=== PATIENT | male | born 1955 | race Caucasian/White ===

== ENCOUNTER 2020-01-04 10:07 | Outpatient (REF) | payer MEDICARE, SELFPAY ==
[2020-01-04 13:45] LABS: C Reactive Protein 0.22 mg/dL (< or = 0.50)
[2020-01-04 14:20] LABS: Erythrocyte Sedimentation Rate 7 MM/HR (0-15)
== END 2020-01-04 10:08 | disposition home or self-care (01) ==
LOC: HO.MANLDS 10:07
PROVIDERS: PCP Physician Assistant; Visit Provider Physician Assistant
DX: K51.90 Ulcerative colitis, unspecified, without complications (principal)
CPT/HCPCS: 36415; 85652; 86140

== ENCOUNTER 2020-10-24 09:11 | Outpatient (REF) | payer MEDICARE, SELFPAY ==
[2020-10-24 11:40] LABS: MANUAL DIFF FLAG NO
[2020-10-24 11:44] LABS: Basophils Percent Auto 0.8 % (0-2); Eosinophils Absolute Auto 0.1 X10*3/uL (0.0-0.4); Eosinophils Percent Auto 2.3 % (0-4); Hematocrit 40.3 % (42-52); Hemoglobin 13.5 g/dl (14.0-18.0); Imm Gran Abs Auto 0.01 X10*3/uL (0.00-0.03); Imm Gran Pct Auto 0.2 % (0.0-0.4); Lymphocytes Absolute Auto 1.8 X10*3/uL (1.2-4.9); Lymphocytes Percent Auto 33.8 % (20-40); Mean Corpuscular HGB Conc 33.5 g/dl (31.0-36.0); Mean Corpuscular Volume 95.5 fL (80-98); Mean Platelet Volume 10.6 fL (9.4-12.4); Monocytes Absolute Auto 0.4 X10*3/uL (0.1-1.2); Monocytes Percent Auto 7.8 % (2-11); Neutrophils Absolute Auto 2.9 X10*3/uL (2.0-8.3); Neutrophils Percent Auto 55.1 % (45-73); Platelet Count 188 X10*3/uL (160-400); Red Blood Count 4.22 X10*6/uL (4.60-5.80); Red Cell Distribution Width 12.1 % (11.0-16.0); White Blood Count 5.3 X10*3/uL (4.8-10.8)
[2020-10-24 12:04] LABS: Alanine Aminotransferase 60 U/L (0-40); Albumin Level 4.4 g/dL (3.5-5.0); Alkaline Phosphatase 67 U/L (39-117); Anion Gap 12 (12-20); Aspartate Amino Transferase 61 U/L (5-37); Bilirubin Total 0.8 mg/dL (0.0-1.0); Blood Urea Nitrogen 10 mg/dL (9-16); Calcium 9.5 mg/dL (8.4-10.2); Carbon Dioxide 28 mmol/L (22-29); Chloride 103 mmol/L (96-108); Cholesterol 153 mg/dL; Estimated Glomerular Filt Rate > 60; Glucose Fasting 172 mg/dL (60-99); HDL Cholesterol 27 mg/dL; LDL Cholesterol Calculated 65 mg/dl; Potassium 4.3 mmol/L (3.3-5.1); Sodium 139 mmol/L (135-145); Total Protein 6.7 g/dL (6.5-8.0); Triglycerides 305 mg/dL
== END 2020-10-24 09:12 | disposition home or self-care (01) ==
LOC: HO.MANLDS 09:11
PROVIDERS: PCP Internal Medicine; Visit Provider Physician Assistant
DX: Z00.00 Encounter for general adult medical examination without abnormal findings (principal)
CPT/HCPCS: 36415; 80053; 80061; 85025

== ENCOUNTER 2021-08-08 09:46 | Outpatient (REF) | payer MEDICARE, SELFPAY ==
[2021-08-08 10:22] LABS: Hematocrit 39.3 % (42.0-52.0); Hemoglobin 13.3 g/dl (14.0-18.0); Mean Corpuscular HGB Conc 33.8 g/dl (31.0-36.0); Mean Corpuscular Hemoglobin 31.4 pg (27.0-33.0); Mean Corpuscular Volume 92.7 fL (80.0-98.0); Mean Platelet Volume 10.1 fL (9.4-12.4); Platelet Count 181 X10*3/uL (160-400); Red Blood Count 4.24 X10*6/uL (4.60-5.80); Red Cell Distribution Width 12.3 % (11.0-16.0); White Blood Count 4.7 X10*3/uL (4.8-10.8)
[2021-08-08 10:36] LABS: Alanine Aminotransferase 53 U/L (0-40); Albumin Level 4.3 g/dL (3.5-5.0); Alkaline Phosphatase 58 U/L (39-117); Anion Gap 12 (12-20); Aspartate Amino Transferase 40 U/L (5-37); Bilirubin Total 0.5 mg/dL (0.0-1.0); Blood Urea Nitrogen 13 mg/dL (9-16); Calcium 9.8 mg/dL (8.4-10.2); Carbon Dioxide 26 mmol/L (22-29); Chloride 105 mmol/L (96-108); Estimated Glomerular Filt Rate > 60; Glucose Random 195 mg/dL (60-115); Iron 82 mcg/dL (45-160); Percent Iron Saturation 24 % (15-50); Potassium 4.4 mmol/L (3.3-5.1); Sodium 139 mmol/L (135-145); Total Iron Binding Capacity 347 mcg/dL (228-428); Total Protein 6.6 g/dL (6.5-8.0); Unsaturated Iron Binding 265 ug/dL
[2021-08-08 10:56] LABS: Ferritin 740 ng/mL (20-250)
== END 2021-08-08 09:47 | disposition home or self-care (01) ==
LOC: HO.BBR 09:46
PROVIDERS: Visit Provider Physician Assistant
DX: E83.110 Hereditary hemochromatosis (principal)
CPT/HCPCS: 36415; 80053; 82728; 83540; 85027

== ENCOUNTER 2021-08-28 11:41 | Outpatient (REF) | payer MEDICARE, SELFPAY ==
[2021-08-28 12:59] LABS: Alanine Aminotransferase 39 U/L (0-40); Albumin Level 4.4 g/dL (3.5-5.0); Alkaline Phosphatase 55 U/L (39-117); Anion Gap 11 (12-20); Aspartate Amino Transferase 34 U/L (5-37); Bilirubin Total 0.5 mg/dL (0.0-1.0); Blood Urea Nitrogen 16 mg/dL (9-16); Calcium 9.9 mg/dL (8.4-10.2); Carbon Dioxide 28 mmol/L (22-29); Chloride 104 mmol/L (96-108); Estimated Glomerular Filt Rate > 60; Glucose Random 195 mg/dL (60-115); Potassium 4.5 mmol/L (3.3-5.1); Sodium 138 mmol/L (135-145); Total Protein 6.9 g/dL (6.5-8.0)
[2021-08-28 13:01] LABS: Estimated Average Glucose 114 mg/dL; Hemoglobin A1C 135.2405 umol/L; Hemoglobin A1c % 5.6 %
== END 2021-08-28 11:42 | disposition home or self-care (01) ==
LOC: HO.MANLDS 11:41
PROVIDERS: Visit Provider Physician Assistant
DX: E11.9 Type 2 diabetes mellitus without complications (principal)
CPT/HCPCS: 36415; 80053; 83036

== ENCOUNTER 2021-11-08 10:00 | Outpatient (REF) | payer MEDICARE, SELFPAY ==
[2021-11-08 10:17] LABS: MANUAL DIFF FLAG NO
[2021-11-08 10:19] LABS: Basophils Absolute Auto 0.1 X10*3/uL (0.0-0.2); Basophils Percent Auto 0.9 % (0-2); Eosinophils Absolute Auto 0.1 X10*3/uL (0.0-0.4); Eosinophils Percent Auto 1.3 % (0-4); Hemoglobin 14.4 g/dl (14.0-18.0); Imm Gran Abs Auto 0.01 X10*3/uL (0.00-0.03); Imm Gran Pct Auto 0.2 % (0.0-0.4); Lymphocytes Absolute Auto 1.8 X10*3/uL (1.2-4.9); Lymphocytes Percent Auto 32.4 % (20-40); Mean Corpuscular HGB Conc 33.5 g/dl (31.0-36.0); Mean Corpuscular Hemoglobin 31.2 pg (27.0-33.0); Mean Corpuscular Volume 93.3 fL (80.0-98.0); Mean Platelet Volume 9.7 fL (9.4-12.4); Monocytes Absolute Auto 0.5 X10*3/uL (0.1-1.2); Monocytes Percent Auto 8.3 % (2-11); Neutrophils Absolute Auto 3.1 x10*3/uL (2.0-8.3); Neutrophils Percent Auto 56.9 % (45-73); Platelet Count 165 X10*3/uL (160-400); Red Blood Count 4.61 X10*6/uL (4.60-5.80); White Blood Count 5.4 X10*3/uL (4.8-10.8)
[2021-11-08 10:37] LABS: Alanine Aminotransferase 18 U/L (0-40); Albumin Level 4.4 g/dL (3.5-5.0); Alkaline Phosphatase 47 U/L (39-117); Anion Gap 13 (12-20); Aspartate Amino Transferase 21 U/L (5-37); Bilirubin Total 0.6 mg/dL (0.0-1.0); Blood Urea Nitrogen 18 mg/dL (9-16); Calcium 9.2 mg/dL (8.4-10.2); Carbon Dioxide 29 mmol/L (22-29); Chloride 104 mmol/L (96-108); Estimated Glomerular Filt Rate > 60; Glucose Random 110 mg/dL (60-115); Iron 68 mcg/dL (45-160); Percent Iron Saturation 17 % (15-50); Potassium 4.6 mmol/L (3.3-5.1); Sodium 141 mmol/L (135-145); Total Iron Binding Capacity 394 mcg/dL (228-428); Total Protein 6.7 g/dL (6.5-8.0); Unsaturated Iron Binding 326 ug/dL
[2021-11-08 10:57] LABS: Ferritin 213 ng/mL (20-250)
== END 2021-11-08 10:01 | disposition home or self-care (01) ==
LOC: HO.BBR 10:00
PROVIDERS: Visit Provider Physician Assistant
DX: E83.110 Hereditary hemochromatosis (principal)
CPT/HCPCS: 36415; 80053; 82728; 83540; 85025

== ENCOUNTER 2022-02-12 09:49 | Outpatient (REF) | payer MEDICARE, SELFPAY ==
[2022-02-12 10:26] LABS: MANUAL DIFF FLAG NO
[2022-02-12 10:29] LABS: Basophils Percent Auto 0.6 % (0-2); Eosinophils Absolute Auto 0.1 X10*3/uL (0.0-0.4); Eosinophils Percent Auto 1.3 % (0-4); Hematocrit 44.6 % (42.0-52.0); Hemoglobin 14.7 g/dl (14.0-18.0); Imm Gran Abs Auto 0.02 X10*3/uL (0.00-0.03); Imm Gran Pct Auto 0.3 % (0.0-0.4); Lymphocytes Absolute Auto 2.2 X10*3/uL (1.2-4.9); Lymphocytes Percent Auto 34.4 % (20-40); Mean Corpuscular Hemoglobin 30.4 pg (27.0-33.0); Mean Corpuscular Volume 92.1 fL (80.0-98.0); Mean Platelet Volume 9.6 fL (9.4-12.4); Monocytes Absolute Auto 0.5 X10*3/uL (0.1-1.2); Monocytes Percent Auto 8.6 % (2-11); Neutrophils Absolute Auto 3.5 x10*3/uL (2.0-8.3); Neutrophils Percent Auto 54.8 % (45-73); Platelet Count 165 X10*3/uL (160-400); Red Blood Count 4.84 X10*6/uL (4.60-5.80); Red Cell Distribution Width 12.5 % (11.0-16.0); White Blood Count 6.3 X10*3/uL (4.8-10.8)
[2022-02-12 11:48] LABS: Alanine Aminotransferase 17 U/L (0-40); Albumin Level 4.4 g/dL (3.5-5.0); Alkaline Phosphatase 53 U/L (39-117); Anion Gap 14 (12-20); Aspartate Amino Transferase 19 U/L (5-37); Bilirubin Total 0.6 mg/dL (0.0-1.0); Blood Urea Nitrogen 23 mg/dL (9-16); Calcium 9.8 mg/dL (8.4-10.2); Carbon Dioxide 25 mmol/L (22-29); Chloride 104 mmol/L (96-108); Estimated Glomerular Filt Rate > 60; Ferritin 168 ng/mL (20-250); Glucose Random 124 mg/dL (60-115); Iron 92 mcg/dL (45-160); Percent Iron Saturation 27 % (15-50); Potassium 4.6 mmol/L (3.3-5.1); Sodium 138 mmol/L (135-145); Total Iron Binding Capacity 338 mcg/dL (228-428); Total Protein 6.9 g/dL (6.5-8.0); Unsaturated Iron Binding 246 ug/dL
== END 2022-02-12 09:50 | disposition home or self-care (01) ==
LOC: HO.BBR 09:49
PROVIDERS: Visit Provider Physician Assistant
DX: E83.110 Hereditary hemochromatosis (principal)
CPT/HCPCS: 36415; 80053; 82728; 83540; 85025

== ENCOUNTER 2022-02-26 11:56 | Outpatient (REF) | payer MEDICARE, SELFPAY | END 2022-02-26 11:57 | disposition home or self-care (01) | LOC: HO.BBR 11:56 | PROVIDERS: Visit Provider Physician Assistant | DX: Z13.89 Encounter for screening for other disorder (principal) ==

== ENCOUNTER 2022-04-02 07:44 | Outpatient (REF) | payer MEDICARE, SELFPAY ==
[2022-04-02 11:37] LABS: Estimated Average Glucose 100 mg/dL; Hemoglobin A1c % 5.1 %
[2022-04-02 11:43] LABS: Alanine Aminotransferase 18 U/L (0-40); Albumin Level 4.5 g/dL (3.5-5.0); Alkaline Phosphatase 49 U/L (39-117); Anion Gap 13 (12-20); Aspartate Amino Transferase 18 U/L (5-37); Bilirubin Total 0.7 mg/dL (0.0-1.0); Blood Urea Nitrogen 18 mg/dL (9-16); Calcium 9.5 mg/dL (8.4-10.2); Carbon Dioxide 28 mmol/L (22-29); Chloride 104 mmol/L (96-108); Estimated Glomerular Filt Rate > 60; Glucose Random 92 mg/dL (60-115); Potassium 4.7 mmol/L (3.3-5.1); Sodium 140 mmol/L (135-145); Total Protein 6.9 g/dL (6.5-8.0)
== END 2022-04-02 07:45 | disposition home or self-care (01) ==
LOC: HO.MANLDS 07:44
PROVIDERS: Visit Provider Physician Assistant
DX: E11.9 Type 2 diabetes mellitus without complications (principal)
CPT/HCPCS: 36415; 80053; 83036

== ENCOUNTER 2022-05-27 11:50 | Outpatient (REF) | payer MEDICARE, SELFPAY ==
[2022-05-27 12:07] LABS: MANUAL DIFF FLAG NO
[2022-05-27 12:10] LABS: Basophils Absolute Auto 0.1 X10*3/uL (0.0-0.2); Basophils Percent Auto 0.6 % (0-2); Eosinophils Absolute Auto 0.1 X10*3/uL (0.0-0.4); Eosinophils Percent Auto 1.5 % (0-4); Imm Gran Abs Auto 0.02 X10*3/uL (0.00-0.03); Imm Gran Pct Auto 0.3 % (0.0-0.4); Lymphocytes Absolute Auto 2.6 X10*3/uL (1.2-4.9); Lymphocytes Percent Auto 32.7 % (20-40); Mean Corpuscular HGB Conc 34.1 g/dl (31.0-36.0); Mean Corpuscular Hemoglobin 31.1 pg (27.0-33.0); Mean Corpuscular Volume 91.3 fL (80.0-98.0); Mean Platelet Volume 9.6 fL (9.4-12.4); Monocytes Absolute Auto 0.5 X10*3/uL (0.1-1.2); Monocytes Percent Auto 6.7 % (2-11); Neutrophils Absolute Auto 4.6 x10*3/uL (2.0-8.3); Neutrophils Percent Auto 58.2 % (45-73); Platelet Count 192 X10*3/uL (160-400); Red Blood Count 4.82 X10*6/uL (4.60-5.80); Red Cell Distribution Width 12.4 % (11.0-16.0); White Blood Count 7.9 X10*3/uL (4.8-10.8)
[2022-05-27 14:13] LABS: Alanine Aminotransferase 18 U/L (0-40); Albumin Level 4.3 g/dL (3.5-5.0); Alkaline Phosphatase 52 U/L (39-117); Anion Gap 9 (12-20); Aspartate Amino Transferase 24 U/L (5-37); Bilirubin Total 0.6 mg/dL (0.0-1.0); Blood Urea Nitrogen 17 mg/dL (9-16); Calcium 9.5 mg/dL (8.4-10.2); Carbon Dioxide 32 mmol/L (22-29); Chloride 104 mmol/L (96-108); Estimated Glomerular Filt Rate > 60; Glucose Random 82 mg/dL (60-115); Iron 123 mcg/dL (45-160); Percent Iron Saturation 39 % (15-50); Potassium 4.4 mmol/L (3.3-5.1); Sodium 141 mmol/L (135-145); Total Iron Binding Capacity 317 mcg/dL (228-428); Total Protein 6.6 g/dL (6.5-8.0); Unsaturated Iron Binding 194 ug/dL
[2022-05-27 14:27] LABS: Ferritin 165 ng/mL (20-250)
== END 2022-05-27 11:51 | disposition home or self-care (01) ==
LOC: HO.BBR 11:50
PROVIDERS: Visit Provider Physician Assistant
DX: E83.110 Hereditary hemochromatosis (principal)
CPT/HCPCS: 36415; 80053; 82728; 83540; 85025

== ENCOUNTER 2022-07-28 12:01 | Outpatient (REF) | payer MEDICARE, SELFPAY | END 2022-07-28 12:02 | disposition home or self-care (01) | LOC: HO.BBR 12:01 | PROVIDERS: Visit Provider Physician Assistant | DX: Z13.89 Encounter for screening for other disorder (principal) ==

== ENCOUNTER 2022-10-28 11:54 | Outpatient (REF) | payer MEDICARE, SELFPAY | END 2022-10-28 11:55 | disposition home or self-care (01) | LOC: HO.BBR 11:54 | PROVIDERS: Visit Provider Physician Assistant | DX: Z13.89 Encounter for screening for other disorder (principal) ==

== ENCOUNTER 2022-10-29 09:09 | Outpatient (REF) | payer MEDICARE, SELFPAY ==
[2022-10-29 09:39] LABS: MANUAL DIFF FLAG NO
[2022-10-29 09:46] LABS: Basophils Absolute Auto 0.1 X10*3/uL (0.0-0.2); Eosinophils Absolute Auto 0.1 X10*3/uL (0.0-0.4); Eosinophils Percent Auto 1.5 % (0-4); Hemoglobin 14.4 g/dl (14.0-18.0); Imm Gran Abs Auto 0.02 X10*3/uL (0.00-0.03); Imm Gran Pct Auto 0.3 % (0.0-0.4); Lymphocytes Absolute Auto 2.1 X10*3/uL (1.2-4.9); Lymphocytes Percent Auto 35.9 % (20-40); Mean Corpuscular HGB Conc 33.5 g/dl (31.0-36.0); Mean Corpuscular Hemoglobin 30.8 pg (27.0-33.0); Mean Corpuscular Volume 91.9 fL (80.0-98.0); Mean Platelet Volume 9.9 fL (9.4-12.4); Monocytes Absolute Auto 0.4 X10*3/uL (0.1-1.2); Neutrophils Absolute Auto 3.2 x10*3/uL (2.0-8.3); Neutrophils Percent Auto 54.3 % (45-73); Platelet Count 173 X10*3/uL (160-400); Red Blood Count 4.68 X10*6/uL (4.60-5.80); Red Cell Distribution Width 12.5 % (11.0-16.0); White Blood Count 5.9 X10*3/uL (4.8-10.8)
[2022-10-29 11:03] LABS: Alanine Aminotransferase 20 U/L (0-40); Albumin Level 4.2 g/dL (3.5-5.0); Alkaline Phosphatase 53 U/L (39-117); Anion Gap 14 (12-20); Aspartate Amino Transferase 20 U/L (5-37); Bilirubin Total 0.5 mg/dL (0.0-1.0); Blood Urea Nitrogen 17 mg/dL (9-16); Calcium 9.1 mg/dL (8.4-10.2); Carbon Dioxide 23 mmol/L (22-29); Chloride 110 mmol/L (96-108); Estimated Glomerular Filt Rate > 60; Glucose Random 120 mg/dL (60-115); Iron 93 mcg/dL (45-160); Percent Iron Saturation 30 % (15-50); Potassium 4.1 mmol/L (3.3-5.1); Sodium 143 mmol/L (135-145); Total Iron Binding Capacity 313 mcg/dL (228-428); Total Protein 6.7 g/dL (6.5-8.0); Unsaturated Iron Binding 220 ug/dL
[2022-10-29 11:06] LABS: Ferritin 113 ng/mL (20-250)
== END 2022-10-29 09:10 | disposition home or self-care (01) ==
LOC: HO.LNP 09:09
PROVIDERS: Visit Provider Physician Assistant
DX: Z13.89 Encounter for screening for other disorder (principal)
CPT/HCPCS: 80053; 82728; 83540; 85025

== ENCOUNTER 2022-12-02 08:30 | Outpatient (REF) | payer MEDICARE, SELFPAY ==
[2022-12-02 13:27] LABS: MANUAL DIFF FLAG NO
[2022-12-02 13:39] LABS: Basophils Absolute Auto 0.1 X10*3/uL (0.0-0.2); Basophils Percent Auto 1.1 % (0-2); Eosinophils Absolute Auto 0.1 X10*3/uL (0.0-0.4); Eosinophils Percent Auto 1.5 % (0-4); Hematocrit 43.5 % (42.0-52.0); Hemoglobin 14.4 g/dl (14.0-18.0); Imm Gran Abs Auto 0.02 X10*3/uL (0.00-0.03); Imm Gran Pct Auto 0.4 % (0.0-0.4); Lymphocytes Absolute Auto 1.8 X10*3/uL (1.2-4.9); Lymphocytes Percent Auto 38.6 % (20-40); Mean Corpuscular HGB Conc 33.1 g/dl (31.0-36.0); Mean Corpuscular Hemoglobin 31.5 pg (27.0-33.0); Mean Corpuscular Volume 95.2 fL (80.0-98.0); Mean Platelet Volume 10.3 fL (9.4-12.4); Monocytes Absolute Auto 0.4 X10*3/uL (0.1-1.2); Monocytes Percent Auto 8.5 % (2-11); Neutrophils Absolute Auto 2.4 x10*3/uL (2.0-8.3); Neutrophils Percent Auto 49.9 % (45-73); Platelet Count 163 X10*3/uL (160-400); Red Blood Count 4.57 X10*6/uL (4.60-5.80); Red Cell Distribution Width 12.8 % (11.0-16.0); White Blood Count 4.7 X10*3/uL (4.8-10.8)
[2022-12-02 14:05] LABS: Alanine Aminotransferase 22 U/L (0-40); Albumin Level 4.2 g/dL (3.5-5.0); Alkaline Phosphatase 47 U/L (39-117); Anion Gap 11 (12-20); Aspartate Amino Transferase 23 U/L (5-37); Bilirubin Total 0.5 mg/dL (0.0-1.0); Blood Urea Nitrogen 14 mg/dL (9-16); Calcium 9.5 mg/dL (8.4-10.2); Carbon Dioxide 29 mmol/L (22-29); Chloride 106 mmol/L (96-108); Cholesterol 138 mg/dL (<200); Estimated Glomerular Filt Rate > 60; Glucose Random 107 mg/dL (60-115); HDL Cholesterol 29 mg/dL (>40); LDL Cholesterol Calculated 70 mg/dL (<100); Potassium 4.1 mmol/L (3.3-5.1); Sodium 142 mmol/L (135-145); Total Protein 6.6 g/dL (6.5-8.0); Triglycerides 196 mg/dL (<150)
[2022-12-02 14:26] LABS: Creatinine Urine 287.28 mg/dL; Microalbum/Creatinine Ratio Ur 2.7 ug/mg cr (<30)
[2022-12-02 14:33] LABS: Estimated Average Glucose 97 mg/dL
== END 2022-12-02 08:31 | disposition home or self-care (01) ==
LOC: HO.MANLDS 08:30
PROVIDERS: Visit Provider Physician Assistant
DX: E11.9 Type 2 diabetes mellitus without complications (principal)
CPT/HCPCS: 36415; 80053; 80061; 82043; 82570; 83036; 85025

== ENCOUNTER 2023-02-03 11:49 | Outpatient (REF) | payer MEDICARE, SELFPAY ==
[2023-02-03 12:08] LABS: MANUAL DIFF FLAG NO
[2023-02-03 12:09] LABS: Basophils Absolute Auto 0.1 X10*3/uL (0.0-0.2); Basophils Percent Auto 0.9 % (0-2); Eosinophils Absolute Auto 0.1 X10*3/uL (0.0-0.4); Eosinophils Percent Auto 2.3 % (0-4); Hematocrit 44.6 % (42.0-52.0); Imm Gran Abs Auto 0.01 X10*3/uL (0.00-0.03); Imm Gran Pct Auto 0.2 % (0.0-0.4); Lymphocytes Absolute Auto 1.9 X10*3/uL (1.2-4.9); Lymphocytes Percent Auto 33.5 % (20-40); Mean Corpuscular HGB Conc 33.6 g/dl (31.0-36.0); Mean Corpuscular Hemoglobin 31.6 pg (27.0-33.0); Mean Corpuscular Volume 93.9 fL (80.0-98.0); Mean Platelet Volume 9.8 fL (9.4-12.4); Monocytes Absolute Auto 0.4 X10*3/uL (0.1-1.2); Monocytes Percent Auto 7.3 % (2-11); Neutrophils Absolute Auto 3.1 x10*3/uL (2.0-8.3); Neutrophils Percent Auto 55.8 % (45-73); Platelet Count 166 X10*3/uL (160-400); Red Blood Count 4.75 X10*6/uL (4.60-5.80); Red Cell Distribution Width 12.3 % (11.0-16.0); White Blood Count 5.6 X10*3/uL (4.8-10.8)
[2023-02-03 12:49] LABS: Alanine Aminotransferase 18 U/L (0-40); Albumin Level 4.5 g/dL (3.5-5.0); Alkaline Phosphatase 56 U/L (39-117); Anion Gap 12 (12-20); Aspartate Amino Transferase 20 U/L (5-37); Bilirubin Total 0.6 mg/dL (0.0-1.0); Blood Urea Nitrogen 14 mg/dL (9-16); Calcium 9.6 mg/dL (8.4-10.2); Carbon Dioxide 30 mmol/L (22-29); Chloride 105 mmol/L (96-108); Estimated Glomerular Filt Rate > 60; Glucose Random 110 mg/dL (60-115); Iron 111 mcg/dL (45-160); Percent Iron Saturation 35 % (15-50); Potassium 4.9 mmol/L (3.3-5.1); Sodium 142 mmol/L (135-145); Total Iron Binding Capacity 316 mcg/dL (228-428); Total Protein 7.3 g/dL (6.5-8.0); Unsaturated Iron Binding 205 ug/dL
[2023-02-03 12:57] LABS: Ferritin 109 ng/mL (20-250)
== END 2023-02-03 11:50 | disposition home or self-care (01) ==
LOC: HO.BBR 11:49
PROVIDERS: PCP Internal Medicine; Visit Provider Physician Assistant
DX: E83.110 Hereditary hemochromatosis (principal)
CPT/HCPCS: 36415; 80053; 82728; 83540; 85025

== ENCOUNTER 2023-05-06 10:48 | Outpatient (REF) | payer MEDICARE, SELFPAY ==
[2023-05-06 11:13] LABS: MANUAL DIFF FLAG NO
[2023-05-06 11:15] LABS: Basophils Absolute Auto 0.1 X10*3/uL (0.0-0.2); Basophils Percent Auto 0.9 % (0-2); Eosinophils Absolute Auto 0.2 X10*3/uL (0.0-0.4); Eosinophils Percent Auto 2.2 % (0-4); Hematocrit 45.1 % (42.0-52.0); Hemoglobin 15.4 g/dl (14.0-18.0); Imm Gran Abs Auto 0.02 X10*3/uL (0.00-0.03); Imm Gran Pct Auto 0.3 % (0.0-0.4); Lymphocytes Absolute Auto 2.2 X10*3/uL (1.2-4.9); Lymphocytes Percent Auto 31.8 % (20-40); Mean Corpuscular HGB Conc 34.1 g/dl (31.0-36.0); Mean Corpuscular Hemoglobin 31.2 pg (27.0-33.0); Mean Corpuscular Volume 91.3 fL (80.0-98.0); Mean Platelet Volume 9.3 fL (9.4-12.4); Monocytes Absolute Auto 0.5 X10*3/uL (0.1-1.2); Monocytes Percent Auto 7.2 % (2-11); Neutrophils Absolute Auto 3.9 x10*3/uL (2.0-8.3); Neutrophils Percent Auto 57.6 % (45-73); Platelet Count 186 X10*3/uL (160-400); Red Blood Count 4.94 X10*6/uL (4.60-5.80); Red Cell Distribution Width 12.6 % (11.0-16.0); White Blood Count 6.8 X10*3/uL (4.8-10.8)
[2023-05-06 13:01] LABS: Alanine Aminotransferase 24 U/L (0-40); Albumin Level 4.6 g/dL (3.5-5.0); Alkaline Phosphatase 55 U/L (39-117); Anion Gap 12 (12-20); Aspartate Amino Transferase 21 U/L (5-37); Bilirubin Total 0.7 mg/dL (0.0-1.0); Blood Urea Nitrogen 17 mg/dL (9-16); Calcium 9.8 mg/dL (8.4-10.2); Carbon Dioxide 29 mmol/L (22-29); Chloride 102 mmol/L (96-108); Estimated Glomerular Filt Rate > 60; Glucose Random 106 mg/dL (60-115); Iron 130 mcg/dL (45-160); Percent Iron Saturation 38 % (15-50); Potassium 3.7 mmol/L (3.3-5.1); Sodium 139 mmol/L (135-145); Total Iron Binding Capacity 345 mcg/dL (228-428); Total Protein 7.3 g/dL (6.5-8.0); Unsaturated Iron Binding 215 ug/dL
[2023-05-06 13:21] LABS: Ferritin 109 ng/mL (20-250)
== END 2023-05-06 10:49 | disposition home or self-care (01) ==
LOC: HO.BBR 10:48
PROVIDERS: PCP Internal Medicine; Visit Provider Physician Assistant
DX: E83.110 Hereditary hemochromatosis (principal)
CPT/HCPCS: 36415; 80053; 82728; 83540; 85025

== ENCOUNTER 2023-08-04 12:04 | Outpatient (REF) | payer MEDICARE, SELFPAY | END 2023-08-04 12:05 | disposition home or self-care (01) | LOC: HO.BBR 12:04 | PROVIDERS: PCP Internal Medicine; Visit Provider Physician Assistant | DX: Z13.89 Encounter for screening for other disorder (principal) ==

== ENCOUNTER 2023-10-12 10:54 | Outpatient (REF) | payer MEDICARE, SELFPAY | END 2023-10-12 10:55 | disposition home or self-care (01) | LOC: HO.BBR 10:54 | PROVIDERS: PCP Internal Medicine; Visit Provider Physician Assistant | DX: Z13.89 Encounter for screening for other disorder (principal) ==

== ENCOUNTER 2023-12-16 11:00 | Outpatient (REF) | payer MEDICARE, SELFPAY | END 2023-12-16 11:01 | disposition home or self-care (01) | LOC: HO.BBR 11:00 | PROVIDERS: PCP Internal Medicine; Visit Provider Physician Assistant | DX: Z13.89 Encounter for screening for other disorder (principal) ==

== ENCOUNTER 2024-02-17 11:51 | Outpatient (REF) | payer MEDICARE, SELFPAY | END 2024-02-17 11:52 | disposition home or self-care (01) | LOC: HO.BBR 11:51 | PROVIDERS: PCP Internal Medicine; Visit Provider Physician Assistant | DX: Z13.89 Encounter for screening for other disorder (principal) ==

== ENCOUNTER 2024-04-20 11:48 | Outpatient (REF) | payer MEDICARE, SELFPAY ==
--- OUTSIDE RECORDS SUMMARY | 2024-04-20 13:49 | XMS_ITS | Data Portability ---
Author Organization [facility] Home Service Address [address] [place] [address] Assessment Encounter Date Assessment Date Assessment LastModified by Organization Details LastModified Time 12/12/2022 12/12/2022 The patient denies recent falls or recurrent falls. Denies instability, weakness, abnormal gait, or difficulties with movement. The patient wears correct, supportive shoes and is not otherwise severely visually impaired. The patient is full weight bearing and if using the assistance of a cane or walker feels supported and stable with the use of such devices. All medical conditions have been taken into account that may pose a risk for the patient for falls. Home julia, carpets and/or rugs do not pose a challenge for the patient. The patient has been educated about the use of vitamin D supplementation for bone health and prevention of hypotensive episodes that may increase risk for fall. All question and concerns were answered to the patient's satisfaction. The patient denies little pleasure in activities they find enjoyable, feeling depressed, difficulties sleeping, feeling tired or having little energy, change in appetite, feeling guilty, overwhelmed or unmotivated. The patient denies suicidal ideation, thoughts of hurting themselves or others. Their mood is appropriate, they show good judgement and clear understanding of the conversation. They are orientated to time, place and person. They are not expressing any concerning thoughts or actions that would need further investigation and treatment for mental health. [email or web address] Not available 12/12/2022 11:59:15 Plan of Treatment Reminders Order Date Submit Date Provider Last Modified By Organization Details Last Modified Time Details Appointments None recorded. Lab lipid panel, blood 2020 021 [facility], [address] [place] [address], [place], [address], 12:01:03 CMP, serum or plasma 2020 021 [facility], [address] [place] [address], [address], 12:01:03 CBC w/ auto diff 2020 021 [facility], [address] [place] [address], [address], 12:01:03 hemoglobin A1c, QN, blood 2021 022 [facility], [address] [place] [address], [address], 13:59:11 CMP, serum or plasma 2021 022 [facility], [address] [place] [address], [address], 13:59:11 hemoglobin A1c, QN, blood 2021 022 [facility], [address] [place] [address], [address], 13:59:11 CMP, serum or plasma 2021 022 [facility], [address] [place] [address], [address], 13:59:11 HbA1c (hemoglobi n A1c), blood 2022 023 [facility], [address] [place] [address], [address], 3 09:46:51 CMP, serum or plasma 2022 023 [facility], [address] [place] [address], [address], 3 09:46:51 lipid panel, blood 2022 023 [facility], [address] [place] [address], [address], 3 09:46:51 hemoglobin A1c, QN, blood 2022 023 [facility], [address] [place] [address], [address], 3 09:46:51 CMP, serum or plasma 2023 024 [facility], [address] [place] [address], [address], 4 10:59:04 lipid panel, blood 2023 024 [facility], [address] [place] [address], [address], 4 10:59:04 hemoglobin A1c, QN, blood 2023 024 [facility], [address] [place] [address], [address], 4 10:59:04 CBC w/ auto diff 2023 024 [facility], [address] [place] [address], [address], 4 10:59:04 Referral ophthalmol ogist referral 2022 023 [email or web address] Allison MD PHD, [address], [place], [address], 3 08:42:24 Procedures None recorded. Surgeries None recorded. Imaging None recorded. Medication Orders metformin 500 mg tablet [address] [id number], [address] [facility], [place], [address], 2 11:52:14 atorvastat in 40 mg tablet 2023 024 [id number], [address] [place], [address], 4 10:57:53 cyclobenza gera 10 mg tablet 2023 024 [id number], [address] [place], [address], 4 10:57:53 glipizide ER 5 mg tablet, extended release 24 hr 2023 024 [id number], [address] [place], [address], 4 10:57:53 fenofibrat e nanocrysta llized 48 mg tablet 2023 024 [id number], [address] [place], [address], 4 10:57:54 Patient TargetsNo targets recorded. Patient InstructionsNo instructions recorded. 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 [email or web address] [facility] ([facility] [address] [facility], [place], [address], 08/02/2021 13:58:49 Result Notes None recorded. Problems Name Problem SNOMED Code Status Onset Date Resolution Date Notes Provider Name and Address Organization Details Recorded Time Hypercho lesterol emia 48643853 Active 2017 Not Available [facility] 3 11:42:59 History of depressi on 266285725 Active 2017 Not Available [facility] 3 11:42:59 Anxiety 06419371 Active 2017 Not Available [facility] 3 11:42:59 Osteoart hritis 910652493 Active 2017 Not Available [facility] 3 11:42:59 History of operativ e procedur e on knee 444396980 Active 2017 Left 1973 , Right 2009 Not Available [facility] 3 11:42:59 Arthriti s 6393005 Active 2017 Not Available [facility] 3 11:42:59 Umbilica l hernia 121015293 Active 2017 Not Available [facility] 3 11:42:59 Hemorrho ids 21038547 Active 2017 Not Available [facility] 3 11:42:59 Gastroes ophageal reflux disease 967827386 Active 2017 Not Available [facility] 3 11:42:59 Impaired fasting glycemia 757431491 Active 2017 Not Available [facility] 3 11:42:59 Hearing loss 08656192 Active 2017 Not Available [facility] 3 11:42:59 Hydroure teroneph rosis 38714477 Active 2017 2/[address] 09/13/15 Not Available [facility] 3 11:42:59 Internal hemorrho ids 66000688 Active 2017 Not Available [facility] 3 11:42:59 Steatosi s of liver 039112805 Active 2017 stable 1.4 cn lesion Left hepatic lobe Not Available [facility] 3 11:42:59 Ulcerati ve colitis 07887559 Active 2019 Not Available [facility] 3 11:42:59 Type 2 diabetes mellitus 59211008 Active 2021 Not Available [facility] 3 11:42:59 Heredita ry hemochro matosis 23809627 Active 2023 DAIANA VELARDE [address] [place], [address], [facility] 4 16:51:26 Gyu l tremor 683921616 Active 2023 Ishan Baker DO [address] [place], [address], [facility] 4 13:32:53 Acute low back pain 372444189 Active 2023 DAIANA VELARDE [address] [place] [address], [address], [facility] 4 10:54:45 Mixed hyperlip idemia 787954219 Active 2023 DAIANA VELARDE [address] [place] [address], [address], [facility] 4 11:01:13 Guy reyes hyperten reji 97918409 Active 2017 Not Available [facility] 3 11:42:59 Notes:Some problems listed i n Document: #[id number] could not be added to this patient's chart. Please review this document and add these problems to the patient's chart manually as needed. Problem Notes None recorded. Procedures Surgical History Date Name Laterality Status Provider Name and Address Organization Details Recorded Time Colonoscopy completed Rosenda Seay [facility] 11/27/2017 16:57:59 Imaging Results Imaging Date Name Status LastModified by Organiz ation Details LastModified Time 08/02/2021 US, abdomen completed [email or web address] [facility] ([facility]) [address] [place], [address], 08/02/2021 13:58:49 Procedure Notes None recorded. Medical Equipment None Reported. Allergies No known drug allergies Medications Name Sig Start Date Stop Date Status Note LastModified by Organization Details LastModified Time cyclobenzap rine 10 mg tablet Take 1 tablet 3 times a day by oral route for 14 days. 2023 active Not Available Not Available Not Avai lable atorvastati n 40 mg tablet Take 1 tablet every day by oral route for 90 days. 2023 active Not Available Not Available Not Avai lable metformin 500 mg tablet TAKE 1 TABLET BY MOUTH EVERY DAY FOR 30 DAYS active Not Available Not Available No t Available primidone 50 mg tablet TAKE 1 TABLET BY MOUTH EVERY DAY FOR 90 DAYS active Not Available Not Available No t Available propranolol ER 160 mg capsule,24 hr,extended release TAKE 1 CAPSULE BY MOUTH EVERY DAY FOR 90 DAYS active Not Available Not Available No t Available metoprolol succinate ER 50 mg tablet,exte nded release 24 hr 12/01 completed Not Available Not Available Not Available glipizide ER 5 mg tablet, extended release 24 hr TAKE 1 TABLET BY MOUTH EVERY DAY 2023 active Not Available Not Available Not Avai lable simvastatin 40 mg tablet TAKE 1 TABLET BY MOUTH AT BEDTIME 04/27 completed Not Available Not Available Not Available alprazolam 0.5 mg tablet TAKE 1 TABLET BY MOUTH THREE TIMES A DAY 2023 active Not Available Not Available Not Avai lable amoxicillin 875 mg tablet TAKE 1 TABLET BY MOUTH TWICE A DAY UNTIL FINISHED 07/10 completed Not Available Not Available Not Available paroxetine 30 mg tablet TAKE 1 TABLET BY MOUTH EVERY DAY active Not Available Not Available No t Available simvastatin 20 mg tablet 09/22 completed Not Available Not Available Not Available propranolol ER 80 mg capsule,24 hr,extended release Take 1 capsule every day by oral route for 90 days. 04/27 completed Not Available Not Available Not Available fenofibrate nanocrystal lized 48 mg tablet TAKE 1 TABLET BY MOUTH ONCE A DAY 2023 active Not Available Not Available Not Avai lable mesalamine 1.2 gram tablet,jakob yed release Take 2 tablets every day by oral route for 30 days. 2019 active Not Available Not Available Not Avai lable GaviLyte-G 236 gram-22.74 gram-6.74 gram-5.86 gram oral solution 12/01 completed Not Available Not Available Not Available OneTouch Verio test strips USE 1 STRIP EVERY DAY 2022 active Not Available Not Available Not Avai lable Fluarix Quad 5713-9538 (PF) 60 mcg (15 mcg x 4)/0.5 mL IM syringe 12/01 completed Not Available Not Available Not Available Shingrix (PF) 50 mcg/0.5 mL intramuscul ar suspension, kit 07/10 completed Not Available Not Available Not Available Afluria Quad (PF) 60 mcg (15 mcg x 4)/0.5 mL IM syringe 03/03 completed Not Available Not Available Not Available Fluzone Quad (PF) 60 mcg (15 mcg x 4)/0.5 mL IM syringe 09/06 completed Not Available Not Available Not Available Fluzone Quad (PF) 60 mcg (15 mcg x 4)/0.5 mL IM syringe 10/24 completed Not Available Not Available Not Available Vitals Date Recorded Body height Body mass index (BMI) Body weight Heart rate Oxygen saturation Oxygen saturation in Arterial blood by Pulse oximetry Systolic blood pressure Diastolic blood pressure Provider Name and Address Organization Details Last Updated DateTime 1 193.67 cm 28.6 kg/m2 720515. 31 g 94 /min 96 % 96 % 110 mm[Hg] 70 mm[Hg] Sophia Hurtado [facility] 1 08:57:19 Date Recorded Body height Oxygen saturation Oxygen saturation in Arterial blood by Pulse oximetry Heart rate Systolic blood pressure Diastolic blood pressure Provider Name and Address Organization Details Last Updated DateTime 2 193.67 cm 96 % 96 % 58 /min 118 mm[Hg] 60 mm[Hg] Winsome Byrd [facility] Internal [facility] 2 14:00:25 Date Recorded Body height Oxygen saturation Oxygen saturation in Arterial blood by Pulse oximetry Heart rate Systolic blood pressure Diastolic blood pressure Provider Name and Address Organization Details Last Updated DateTime 3 193.67 cm 98 % 98 % 72 /min 98 mm[Hg] 62 mm[Hg] Winsome Byrd [facility] 3 09:29:46 Date Recorded Body height Body mass index (BMI) Body weight Heart rate Oxygen saturation Oxygen saturation in Arterial blood by Pulse oximetry Systolic blood pressure Diastolic blood pressure Provider Name and Address Organization Details Last Updated DateTime 3 193.67 cm 27.4 kg/m2 641175. 67 g 69 /min 96 % 96 % 108 mm[Hg] 70 mm[Hg] DAIANA VELARDE [address] [place], [address] [place] [address] Internal Medicine 3 11:48:10 Social History Question Answer Notes LastModified by Organizat ion Details LastModified Time Tobacco Smoking Status Former Smoker Not Available [facility] 01/31/2020 03:36:24 What Was The Date Of Your Most Recent Tobacco Screening? 12/12/2022 [email or web address] Information not available 12/12/2022 How Many Years Have You Smoked Tobacco? 12 [id number] Information not available 01/31/2020 Sex: Unknown Functional Status None recorded. Mental Status None recorded. Family History Relationship Description Onset Age of this Age Resolved Age Notes LastModified by Organization Details LastModified Time Brother Family history of malignant neoplasm prosta te cancer sbucko Not available 10/20/2018 11:49:25 Brother History of hypertension sbucko Not available 12:20:09 Sister History of hypertension sbucko Not available 12:20:09 Medical History No medical history recorded. Immunizations Vaccine Type Date Status Note Provider Nam e and Address Organization Details Recorded Time Influenza, split virus, quadrivalent, preservative 12/18/19 18 completed Not Available [facility] 12/16/2021 12:44:51 COVID-19, mRNA, LNP-S, PF, 100 mcg/0.5mL dose or 50 mcg/0.25mL dose 03/11/20 21 completed Not Available [facility] 12/16/2021 12:44:51 COVID-19, mRNA, LNP-S, PF, 100 mcg/0.5mL dose or 50 mcg/0.25mL dose 08/10/19 22 completed Not Available [facility] 12/16/2021 12:44:51 Pneumococcal conjugate PCV20, polysaccharide PLL180 conjugate, adjuvant, PF 08/10/19 22 completed Not Available [facility] 07/04/2022 03:01:06 Tdap 11/08/19 22 completed Not Available [facility] 12/16/2021 12:44:51 Influenza, split virus, quadrivalent, preservative 12/19/19 22 completed Ishan Baker, DO [address] [facility], [place], [address], [facility] 12/22/2021 15:21:21 COVID-19, mRNA, LNP-S, PF, 100 mcg/0.5mL dose or 50 mcg/0.25mL dose 12/31/19 22 completed Sophia kwon [facility] 01/01/2022 13:31:30 influenza, unspecified formulation 11/20/19 24 completed Leidy kwon [facility] 11/23/2023 08:36:59 zoster recombinant 12/19/19 20 completed Not Available [facility] 12/16/2021 12:44:51 Influenza, split virus, quadrivalent, preservative 11/29/19 20 completed Not Available [facility] 12/16/2021 12:44:51 COVID-19, mRNA, LNP-S, PF, 100 mcg/0.5mL dose or 50 mcg/0.25mL dose 07/01/19 21 completed Not Available [facility] 12/16/2021 12:44:51 COVID-19, mRNA, LNP-S, PF, 100 mcg/0.5mL dose or 50 mcg/0.25mL dose 07/31/19 21 completed Not Available [facility] 12/16/2021 12:44:51 Tdap 03/30/19 16 completed Not Available [facility] 12/16/2021 12:44:51 zoster recombinant 02/05/20 16 completed Not Available [facility] 12/16/2021 12:44:51 Past Encounters Encounter ID Performer Location Encounter Start Date Encounter Closed Date Diagnosis/Indication Diagnosis SNOMED-CT Code Diagnosis ICD10 Code Diagnosis Note [id number] June CASEY [facility] [address] [facility],[place] [address] 09/22/2017 11:07:11 09/22/2017 11:52:14 Chronic back pain 996054520 M54.5 not recommendi ng or endorsing permanent disability for this at this time. recommend having spinal imaging and probably spinal specialist work up. Thoracic back pain 33834 8004 M54.6 not recommendi ng or endorsing permanent disability for this at this time. recommend having spinal imaging and probably spinal specialist work up. Essential tremor 5357234 09 G25.0 I do not believe this warrants permanent disability . Lumbar radiculopathy 128 639159 M54.16 of left foot [id number] [facility] [address] [facility] [address] [address] 12/01/2017 08:51:32 12/01/2017 10:37:46 Hypercholesterolemia 47611631 E78.00 in addition to healthy diet Impaired f asting glycemia 911292706 R73.01 Essential hypertension 24489158 I10 very well controlled BP propranolo l likely used for essential tremor will decrease dose as he reports some tiredness, also to see if triglyceri alyssa will be positively effected Adult [facility] th examination 955873892 Z00.01 Goiter 1455026 E04.9 thyroid fullness on left side, will check u/s Chronic back pain 070003 002 M54.5 will see ortho for eval of chronic back issues [id number] [facility] [address] [facility] [address],[place] [address] 04/27/2018 08:49:59 04/27/2018 09:35:12 Hypercholesterolemia 70075250 E78.00 improved from prior on atorvastat in and fenofibrat e for cholestero l in addition to healthy diet and exercies Gastroesop hageal reflux disease 657656519 K21.9 no problems, rare sx Impaired f asting glycemia 083320400 R73.01 improved from prior labs normal fbs, has cut back on junk food Steatosis of liver 1007 K76.0 near normal labs, improved from prior labs History of depression 16 7443002 Z86.59 Essential hypertension 14815177 I10 very well controlled BP propranolo l likely used for essential tremor lowering dose of propranolo l improved energy levels Vitamin D deficiency 347 66008 E55.9 [id number] [facility] [address] [facility] [address],[place] [address] 10/22/2018 08:51:51 10/22/2018 10:07:26 Anxiety 26609592 F41.9 Hypercholesterolemia 136 64375 E78.00 healthy diet continue atorvastat in Impaired f asting glycemia 758343037 R73.01 Essential hypertension 08334581 I10 very well controlled BP propranolo l likely used for essential tremor he was cut down from 160 to 80 and then some how ended back on 160 he is not having any fatigue so we will leave it that way Adult heal th examination 090600221 Z00.01 Goiter 3876781 E04.9 thyroid fullness [place], [place] [id number] [facility] [address] [facility] [address],[place] [address] 09/07/2019 11:08:17 09/07/2019 11:54:27 Pain in left knee 2344262005 38847 M25.562 will refer to ortho to have him examined for possible quadriceps tear, LCL/latera l meniscus tear after the injury he sustained to it Pain in right knee 68203 61983 90895 M25.561 pain right knee not left [id number] [facility]ELARDE [facility] [address] [facility] [address],[place] [address] 10/24/2019 08:54:10 10/24/2019 09:30:12 Adult health examination 965652626 Z00.00 doing well BP is excellent today, 120/70 Active or passive immunization 739218200 Z23 waiting for pharmacies to start doing them again Ophthalmic examination and evaluation 77587715 Z01.00 age related vision loss would like to be checked [id number] [facility]ELAR[facility] [address] [facility] [address] [address] 01/04/2020 09:21:09 01/04/2020 09:56:56 Ulcerative colitis 83293341 K51.90 will set up with GI again having another UC flare up again prob compounded by eating habits Essential hypertension 71941633 I10 BP excellent today [id number] [facility]ELAR[facility] [address] [facility] [address] [address] 10/24/2020 08:51:25 10/24/2020 09:55:23 Active or passive immunization 761275393 Z23 waiting for pharmacies to start doing them again Adult heal th examination 760928554 Z00.00 doing well BP is excellent today, 110/70 [id number] [facility]ELARDE [facility] [address] [facility] [address],[place] [address] 07/10/2021 13:42:24 07/12/2021 09:43:44 Type 2 diabetes mellitus 06604717 E11.9 will fu with recheck in three months the patient will fu with starting on 500 mg Ulcerative colitis 39007 004 K51.90 has a fu with GI as well [id number] [facility] [address] [facility] [address] [address] 04/21/2022 09:20:36 04/21/2022 14:09:05 Anxiety 87658807 F41.1 stable Essential hypertension 32572864 I10 BP excellent today Gastroesop hageal reflux disease 484767687 K21.9 stable Impaired f asting glycemia 037963433 R73.01 stable; average glucose is 100 which is excellent Type 2 martha betes mellitus 57019928 E11.9 A1c is perfect at 5.[id number] [facility] [address] [facility] [address] [address] 12/12/2022 11:40:07 12/12/2022 12:06:51 Anxiety 88816204 F41.1 stable Essential hypertension 67292987 I10 BP excellent today Gastroesop hageal reflux disease 274039828 K21.9 stable Hypercholesterolemia 136 24146 E78.2 stable Type 2 martha betes mellitus 51413277 E11.9 A1c is perfect at 5.0 % Ulcerative colitis 60510 004 K51.90 stable [id number] DAIANA VELARDE [facility] [address] [facility] [address] [facility] [place] [address] 02/15/2024 08:51:28 02/15/2024 11:20:46 Acute low back pain 184011750 M54.59 needs refill Mixed hyperlipidemia 267 506138 E78.2 labs ordered Type 2 martha betes mellitus 80070976 E11.9 A1c is perfect at 5.0 % at last check Hypercholesterolemia 136 87268 E78.2 stable Essential hypertension 50439965 I10 BP excellent today Hereditary hemochromatosis 19978563 E83.110 still getting blood draws, doing well Health Concerns Section Related Observation LastModified by Organization Irving gray LastModified Time None Recorded Concern Status LastModified by Organization Details LastModified Time None Recorded Advance Directives Directive None Recorded Payers Encounter Date Sequence Insurance Name Policy Number Policy Alves Covered Member ID Alves Member ID Guarantor Name 10/24/2020 1 [facility] PLAN - MEDICARE PREFERRED (MEDICARE REPLACEMENT HMO) JE Ruffin [id number] Caleb Oshearad 07/10/2021 1 [facility] PLAN - MEDICARE PREFERRED (MEDICARE REPLACEMENT HMO) [employer] Caleb Ruffin [id number] 1 Caleb Augustin 04/21/2022 1 [facility] HE[facility] PLAN - MEDICARE PREFERRED (MEDICARE REPLACEMENT HMO) [employer] Caleb Ruffin [id number] 1 Caleb Augustin 12/12/2022 1 [facility] HEALTH PLAN - MEDICARE PREFERRED (MEDICARE REPLACEMENT HMO) [employer] Caleb Ruffin [id number] 1 Caleb Augustin 02/15/2024 1 [facility] PLAN - MEDICARE PREFERRED (MEDICARE REPLACEMENT HMO) [employer] Caleb Ruffin [id number] 1 Caleb Ruffin Notes Date Note Type Note Provider Name and Address Organization Details Recorded Time 10/25/19 21 text/htm l Annual WellnessReported bypatient.Diet and Nutrition:healthy diet; discussed vitamin and supplement use; discussed portion control; discussed maintaining calcium balance; discussed diet improvement; balanced diet Fracture Risk:no history of fractures; no recent explained fracture; no sudden unexplained fractures; no previous musculoskeletal injuries Physical Activity:exercises on a regular basis; recent increase in physical activity; good physical condition; discussed weightbearing activities; discussed exercise habits; lives active lifestyle Additional Lifestyle Factors:no tobacco use; drinks alcohol (mild-moderate); one drink per month Depression Risk:never feels sad, empty, or tearful; no loss of interest in activities; no significant changes in weight; no sleep disturbances or insomnia; no agitation; no loss of energy; no feelings of worthlessness or guilt; no thoughts of suicide; no history of depression; no history of mood disorders Hearing:no loss of hearing Vision:no vision problems; needs cataract surgery at some BP is excellent DAIANA VELARDE [address] [place] [address], [phone], [facility] 10/24/2020 09:23:22 07/11/19 22 text/htm l f/u new T2DM reviewed labs with the patientdiscussed lifestyle changes and starting a medication for diabetic control given his level of 8.4%will start on metformin, fu if worsening of his diarrheawill switch to glipizide if that is the case has fu with GI for his UC and hemmrhoidswill fu with patient with recheck BW in 3 mos DAIANA VELARDE [address] [place], [phone], [facility] 07/10/2021 14:20:37 04/21/19 text/htm l f/u lab work T2DM: much improved with glipizidelevels are tduwmyhdaT2e is 5.1% HTN: today in the office the patient BP is 98/62 L arm sitting the patient is doing well on the BP medication with no side effects and no adjustment of their medications needed today at the appointment well-controlled on medication denies chest pain, sob, ankle swelling, orthopnea, palpitations anxiety: stable GERD; stable all questions answered todaypatient doing really well DAIANA VELARDE [address] [place], [phone], [facility] 04/21/2022 09:42:53 12/13/19 23 text/htm l f/u med check anxiety: stablexanax dose is good for patient HTN: today in the office the patient BP is 108/70 L arm sitting the patient is doing well on the BP medication with no side effects and no adjustment of their medications needed today at the appointment well-controlled on medication denies chest pain, sob, ankle swelling, orthopnea, palpitations GERD: stable HLD: stable UC: stable T2DM: A1c is 5% which is excellentmicroalbumin was wnl and his cholesterol was excellent feeling really good DAIANA VELARDE [address] [place], [phone], [facility] 12/12/2022 12:02:58 02/15/20 24 text/htm l f/u med check The patient is participating in this appointment via telemedicine communication with a phone call/video calling service (Doxy)The patient consents to use of these platforms in place of an in-person appointment due to either sick symptoms the patient is presenting with or current office closure due to COVID exposure in order to keep our office staff and patients safe the patient is having ongoing intermittent low back muscles spasmsstable for the most partdoes need a refull of the msk relaxer for the worse days, works wellsent in to pharm good on all his medicationsno side effects no issues otherwiseis down 10 pounds with diet change which is excellent news BP is good overall at home sees neuro for the tremors still which are stable has to go for his therapeutic phlebotomy every 2 mos nowno issues otherwise DAIANA VELARDE [address] [place] [address], [place], [phone], [facility] 02/15/2024 11:01:35
== END 2024-04-20 11:49 | disposition home or self-care (01) ==
LOC: HO.BBR 11:48
PROVIDERS: PCP Internal Medicine; Visit Provider Physician Assistant
DX: Z13.89 Encounter for screening for other disorder (principal)

== ENCOUNTER 2024-04-22 06:22 | Outpatient (REF) | payer MEDICARE, SELFPAY ==
[2024-04-22 06:49] LABS: MANUAL DIFF FLAG NO
[2024-04-22 07:04] LABS: Basophils Percent Auto 0.8 % (0-2); Eosinophils Absolute Auto 0.1 X10*3/uL (0.0-0.4); Eosinophils Percent Auto 1.4 % (0-4); Hematocrit 42.2 % (42.0-52.0); Hemoglobin 14.2 g/dl (14.0-18.0); Imm Gran Abs Auto 0.01 X10*3/uL (0.00-0.03); Imm Gran Pct Auto 0.2 % (0.0-0.4); Lymphocytes Absolute Auto 2.2 X10*3/uL (1.2-4.9); Lymphocytes Percent Auto 44.5 % (20-40); Mean Corpuscular HGB Conc 33.6 g/dl (31.0-36.0); Mean Corpuscular Hemoglobin 31.2 pg (27.0-33.0); Mean Corpuscular Volume 92.7 fL (80.0-98.0); Mean Platelet Volume 9.9 fL (9.4-12.4); Monocytes Absolute Auto 0.4 X10*3/uL (0.1-1.2); Monocytes Percent Auto 8.6 % (2-11); Neutrophils Absolute Auto 2.2 x10*3/uL (2.0-8.3); Neutrophils Percent Auto 44.5 % (45-73); Platelet Count 167 X10*3/uL (160-400); Red Blood Count 4.55 X10*6/uL (4.60-5.80); Red Cell Distribution Width 12.3 % (11.0-16.0)
[2024-04-22 07:11] LABS: Estimated Average Glucose 105 mg/dL; Hemoglobin A1C 124.3779 umol/L; Hemoglobin A1c % 5.3 % (<6.0); Total Hemoglobin (HGBA1C) 3643.9204 umol/L
[2024-04-22 07:18] LABS: Alanine Aminotransferase 20 U/L (0-40); Albumin Level 4.4 g/dL (3.5-5.0); Alkaline Phosphatase 51 U/L (39-117); Anion Gap 9 (12-20); Aspartate Amino Transferase 23 U/L (5-37); Bilirubin Total 0.6 mg/dL (0.0-1.0); Blood Urea Nitrogen 22 mg/dL (9-16); Calcium 9.7 mg/dL (8.4-10.2); Carbon Dioxide 29 mmol/L (22-29); Chloride 108 mmol/L (96-108); Cholesterol 134 mg/dL (<200); Estimated Glomerular Filt Rate > 60; Glucose Random 95 mg/dL (60-115); HDL Cholesterol 29 mg/dL (>40); LDL Cholesterol Calculated 76 mg/dL (<100); Potassium 4.4 mmol/L (3.3-5.1); Sodium 142 mmol/L (135-145); Triglycerides 146 mg/dL (<150)
== END 2024-04-22 06:23 | disposition home or self-care (01) ==
LOC: HO.LAB 06:22
PROVIDERS: PCP Internal Medicine; Visit Provider Physician Assistant
DX: E11.9 Type 2 diabetes mellitus without complications (principal)
CPT/HCPCS: 36415; 80053; 80061; 83036; 85025

== ENCOUNTER 2024-06-30 11:47 | Outpatient (REF) | payer MEDICARE, SELFPAY ==
--- OUTSIDE RECORDS SUMMARY | 2024-06-30 13:09 | XMS_ITS | Data Portability ---
Author Organization [facility] Home Service Address [address] [place] [address] Assessment Encounter Date Assessment Date Assessment LastModified [...] Modified Time Details Appointments None recorded. Lab CMP, serum or plasma 2023 024 [facility], [address] [place] [address], [place], [address], 4 10:59:04 lipid panel, blood 2023 024 [facility], [address] [place] [address], [address], 4 10:59:04 hemoglobin A1c, QN, blood 2023 024 [facility], [address] [place] [address], [address], 4 10:59:04 CBC w/ auto diff 2023 024 [facility], [address] [place] [address], [address], 4 10:59:04 HbA1c (hemoglobi n A1c), blood 2022 023 [facility], [address] [place] [address], [address], 3 09:46:51 CMP, serum or plasma 2022 023 [facility], [address] [place] [address], [address], 3 09:46:51 lipid panel, blood 2022 023 [facility], [address] [place] [address], [address], 3 09:46:51 hemoglobin A1c, QN, blood 2022 023 [facility], [address] [place] [address], [address], 3 09:46:51 hemoglobin A1c, QN, blood 2021 022 [facility], [address] [place] [address], [address], 2 13:59:11 CMP, serum or plasma 2021 022 [facility], [address] [place] [address], [place], [address], 2 13:59:11 hemoglobin A1c, QN, blood 2021 022 [facility], [address] [place] [address], [place], [address], 2 13:59:11 CMP, serum or plasma 2021 022 [facility], [address] [place] [address], [address], 2 13:59:11 Referral ophthalmol ogist referral 2022 023 zoraida Allison MD PHD, [address], [place], [address], 3 08:42:24 Procedures None recorded. Surgeries None recorded. Imaging None recorded. Medication Orders metronidaz ole 0.75 % topical cream 2024 025 [id number], [address] [place], [address], 5 09:37:00 atorvastat in 40 mg tablet 2023 024 [facility], [address] [place], [address], 4 10:57:53 cyclobenza gera 10 mg tablet 2023 024 [facility], [address] [place], [address], 4 10:57:53 glipizide ER 5 mg tablet, extended release 24 hr 2023 024 [facility], [address] [place], [address], 4 10:57:53 fenofibrat e nanocrysta llized 48 mg tablet 2023 024 [facility], [address] [place], [address], 4 10:57:54 metformin 500 mg tablet 2021 [facility]22 [facility] [address] [place], [address], 2 11:52:14 Patient TargetsNo targets recorded. Patient InstructionsNo instructions recorded. Reason for Referral Plant Technician Referral for Type 2 diabetes mellitus needs eye exam, possible cataracts Referring Physician: Danyelle Noble, Internal Medicine, Encounter Date: 12/12/2022 Results Created Date Observation Date Name Description Value Unit Range Abnormal Flag Note LastModifiedBy Organization Detail LastModifiedTime 08/03/19 22 08/02/2021 US, abdom en No observ ation record ed. [email or web address] [facility] (Mammo) [address] [facility], [place], [address], 08/02/2021 13:58:49 Result Notes None recorded. Problems Name Problem SNOMED Code Status Onset Date Resolution Date Notes Provider Name and Address Organization Details Recorded Time Hypercho lesterol emia 97884550 Active 2017 Not Available [facility] 3 11:42:59 History of depressi on 107913590 Active 2017 Not Available [facility] 3 11:42:59 Anxiety 82642970 Active 2017 Not Available [facility] 3 11:42:59 Osteoart hritis 799943243 Active 2017 [facility] Available [facility] 3 11:42:59 History of operativ e procedur e on knee 802983303 Active 2017 Left 1973 , Right 2009 Not Available [facility] 3 11:42:59 Arthriti s 9913372 Active 2017 Not Available [facility] 3 11:42:59 Umbilica l hernia 224963159 Active 2017 Not Available [facility] 3 11:42:59 Hemorrho ids 88952087 Active 2017 Not Available [facility] 3 11:42:59 Gastroes ophageal reflux disease 719114514 Active 2017 Not Available [facility] 3 11:42:59 Impaired fasting glycemia 769321107 Active 2017 Not Available [facility] 3 11:42:59 Hearing loss 56586464 Active 2017 Not Available [facility] 3 11:42:59 Hydroure teroneph rosis 34555321 Active 2017 2/[address] 09/13/15 Not Available [facility] 3 11:42:59 Internal hemorrho ids 15091332 Active 2017 Not Available [facility] 3 11:42:59 Steatosi s of liver 408250582 Active 2017 stable 1.4 cn lesion Left hepatic lobe Not Available [facility] 3 11:42:59 Ulcerati ve colitis 44342822 Active 2019 Not Available [facility] 3 11:42:59 Type 2 diabetes mellitus 69444319 Active 2021 Not Available [facility] 3 11:42:59 Heredita ry hemochro matosis 24529431 Active 2023 DA[address]NA V[address]DE [address] [place] [address], [address], [facility] 4 16:51:26 Essentia l tremor 819101089 Active 2023 Ishan Baker DO [address] [place], [address], [facility] 4 13:32:53 Acute low back pain 724297587 Active 2023 DAIANA VELARDE [address] [place] [address], [address], [facility] 4 10:54:45 Mixed hyperlip idemia 721666707 Active 2023 DAIANA VELARDE [address] [place], [address], [facility] 4 11:01:13 Rosacea, erythema tous telangie ctatic type 908037 Active 2024 DAIANA VELARDE [address] [place], [address], [facility] 5 09:35:17 Colitis 22529269 Active 2024 DAIANA VELARDE [address] [place] [address], [address], [facility] 5 09:37:29 Essentia l hyperten reji 77543440 Active 2017 Not Available [facility] 3 11:42:59 Notes:Some problems listed i n Document: #[id number] could not be added to this patient's chart. Please review this document and add these problems to the patient's chart manually as needed. Problem Notes None recorded. Procedures Surgical History Date Name Laterality Status Provider Name and Address Organization Details Recorded Time Colonoscopy completed Rosenda Seay [facility] 11/27/2017 16:57:59 Imaging Results Imaging Date Name Status LastModified by Organiz ation Details LastModified Time 08/02/2021 US, abdomen completed rtryba [facility] (Mammo) [address] [place], [address], 08/02/2021 13:58:49 Procedure Notes None recorded. Medical Equipment None Reported. Allergies No known drug allergies Medications Name Sig Start Date Stop Date Status Note LastModified by Organization Details LastModified Time cyclobenzap rine 10 mg tablet Take 1 tablet 3 times a day by oral route for 14 days. 2023 active Not Available Not Available Not Avai lable atorvastati n 40 mg tablet TAKE 1 TABLET BY MOUTH EVERY DAY active Not Available Not Available No t Available metformin 500 mg tablet TAKE 1 TABLET [...] Available Not Available No t Available simvastatin 40 mg tablet TAKE 1 TABLET BY MOUTH AT BEDTIME 04/27 completed Not Available Not Available Not Available alprazolam 0.5 mg tablet TAKE 1 TABLET BY MOUTH THREE TIMES A DAY active Not Available Not Available No t Available amoxicillin 875 mg tablet TAKE 1 TABLET [...] completed Not Available Not Available Not Available metronidazo le 0.75 % topical cream APPLY A THIN LAYER TOPICALLY TO THE AFFECTED AREA(S) 2 TIMES PER DAY IN THE MORNING AND EVENING active Not Available Not Available No t Available fenofibrate nanocrystal lized 48 mg tablet TAKE 1 TABLET BY MOUTH EVERY DAY active Not Available Not Available No t Available mesalamine 1.2 gram tablet,jakob yed release Take 2 tablets every day by oral route for 30 days. 2019 active Not Available Not Available Not Avai lable GaviLyte-G 236 gram-22.74 gram-6.74 gram-5.86 gram oral solution 12/01 completed Not Available Not Available Not Available OneTouch Verio test strips USE 1 STRIP EVERY DAY 2022 active Not Available Not Available Not Avai lable Fluarix Quad 7137-2391 (PF) 60 mcg (15 mcg x 4)/0.5 [...] Not Available Vitals Date Recorded Body height Oxygen saturation Oxygen saturation in Arterial blood by Pulse oximetry Heart rate Systolic blood pressure Diastolic blood pressure Provider Name and Address Organization Details Last Updated DateTime 2 193.67 cm 96 % 96 % 58 /min 118 mm[Hg] 60 mm[Hg] Winsome Byrd [facility] 2 14:00:25 Date Recorded Body height Oxygen saturation Oxygen saturation in Arterial blood by Pulse oximetry Heart rate Systolic blood pressure Diastolic blood pressure Provider Name and Address Organization Details Last Updated DateTime 3 193.67 cm 98 % 98 % 72 /min 98 mm[Hg] 62 mm[Hg] Winsome Byrd [facility] 3 09:29:46 Date Recorded Body height Body mass index (BMI) Body weight Heart rate Oxygen saturation Oxygen saturation in Arterial blood by Pulse oximetry Systolic blood pressure Diastolic blood pressure Provider Name and Address Organization Details Last Updated DateTime 3 193.67 cm 27.4 kg/m2 574693. 67 g 69 /min 96 % 96 % 108 mm[Hg] 70 mm[Hg] DAIANA VELARDE [address] [place], [address] [place] [address] Internal Medicine 3 11:48:10 Date Recorded Body height Body mass index (BMI) Body weight Heart rate Oxygen saturation Oxygen saturation in Arterial blood by Pulse oximetry Systolic blood pressure Diastolic blood pressure Provider Name and Address Organization Details Last Updated DateTime 5 193.04 cm 28.2 kg/m2 387383. 43 g 57 /min 99 % 99 % 120 mm[Hg] 70 mm[Hg] Pamela Fontaine [facility] 09:29:45 Social History Question Answer Notes LastModified by Organizat ion Details LastModified Time Tobacco Smoking Status Former Smoker Not Available [facility] 01/31/2020 03:36:24 What Was The Date Of Your Most Recent Tobacco Screening? 06/06/2024 [email or web address] Information not available 06/06/2024 How Many Years Have You Smoked Tobacco? 12 [id number] Information not available 01/31/2020 Do You Or Have You Ever Used Any Other Forms Of Tobacco Or Nicotine? No Information not available 06/06/2024 Sex: Unknown Functional Status None recorded. Mental [...] quadrivalent, preservative 12/18/19 18 completed Not Available [facility] 12/16/2021 12:44:51 COVID-19, mRNA, LNP-S, PF, 100 mcg/0.5mL dose or 50 mcg/0.25mL dose 03/11/20 21 completed Not Available [facility] 12/16/2021 12:44:51 COVID-19, mRNA, LNP-S, PF, 100 mcg/0.5mL dose or 50 mcg/0.25mL dose 08/10/19 22 completed Not Available [facility] 12/16/2021 12:44:51 Pneumococcal conjugate PCV20, polysaccharide QAR295 conjugate, adjuvant, PF 08/10/19 22 completed Not Available [facility] 07/04/2022 03:01:06 Tdap 11/08/19 22 completed Not Available [facility] 12/16/2021 12:44:51 Influenza, split virus, quadrivalent, preservative 12/19/19 22 completed Ishan Baker, DO [address] [place], [address], [facility] 12/22/2021 15:21:21 COVID-19, mRNA, LNP-S, PF, 100 mcg/0.5mL dose or 50 mcg/0.25mL dose 12/31/19 22 completed Sophia Hurtado null, [facility] 01/01/2022 13:31:30 influenza, unspecified formulation 11/20/19 24 completed Leidy kwon, [facility] 11/23/2023 08:36:59 zoster, unspecified formulation 05/25/19 25 completed Leidy Garnica [facility], [facility] 05/27/2024 09:50:21 influenza, unspecified formulation 05/25/19 25 completed Leidy Garnica [facility], [facility] 05/27/2024 09:50:32 zoster recombinant 12/19/19 20 completed Not Available [facility] 12/16/2021 12:44:51 Influenza, split virus, quadrivalent, preservative 11/29/19 20 completed Not Available [facility] 12/16/2021 12:44:51 COVID-19, mRNA, LNP-S, PF, 100 mcg/0.5mL dose or 50 mcg/0.25mL dose 07/01/19 21 completed Not Available [facility] 12/16/2021 12:44:51 COVID-19, mRNA, LNP-S, PF, 100 mcg/0.5mL dose or 50 mcg/0.25mL dose 07/31/19 21 completed Not Available [facility] 12/16/2021 12:44:51 Tdap 03/30/19 16 completed Not Available [facility] 12/16/2021 12:44:51 zoster recombinant 02/05/20 16 completed Not Available [facility] 12/16/2021 12:44:51 Past Encounters Encounter ID Performer Location Encounter Start Date Encounter Closed Date Diagnosis/Indication Diagnosis SNOMED-CT Code Diagnosis ICD10 Code Diagnosis Note [id number] June CASEY Thompson [facility] [address] [facility],[place] [address] 09/22/2017 11:07:11 09/22/2017 11:52:14 Chronic back pain 717254888 M54.5 not recommendi ng or endorsing permanent disability for this at this time. recommend having spinal imaging and probably spinal specialist work up. Thoracic back pain 46489 8004 M54.6 not recommendi ng or endorsing permanent disability for this at this time. recommend having spinal imaging and probably spinal specialist work up. Essential tremor 7099638 09 G25.0 I do not believe this warrants permanent disability . Lumbar radiculopathy 128 659323 M54.16 of left foot [id number] [facility], [place] [address] [facility],[place] [address] 12/01/2017 08:51:32 12/01/2017 10:37:46 Hypercholesterolemia 86279558 E78.00 in addition to healthy diet Impaired f asting glycemia 697704217 R73.01 Essential hypertension 87430040 I10 very well controlled BP propranolo l likely used for essential tremor will decrease dose as he reports some tiredness, also to see if triglyceri alyssa will be positively effected Adult [facility] examination 332154286 Z00.01 Goiter 2748978 E04.9 thyroid fullness on left side, will check u/s Chronic back pain 667227 002 M54.5 will see ortho for eval of chronic back issues [id number] [facility], [place] [address] [place] [address],[place] [address] 04/27/2018 08:49:59 04/27/2018 09:35:12 Hypercholesterolemia 49502051 E78.00 improved from prior on atorvastat in and fenofibrat e for cholestero l in addition to healthy diet and exercies Gastroesop hageal reflux disease 828729003 K21.9 no problems, rare sx Impaired f asting glycemia 719892110 R73.01 improved from prior labs normal fbs, has cut back on junk food Steatosis of liver 1007 K76.0 near normal labs, improved from prior labs History of depression 16 4433278 Z86.59 Essential hypertension 56540938 I10 very well controlled BP propranolo l likely used for essential tremor lowering dose of propranolo l improved energy levels Vitamin D deficiency 347 01799 E55.9 [id number] [facility], [place] [address] [facility],[place] [address] 10/22/2018 08:51:51 10/22/2018 10:07:26 Anxiety 69140059 F41.9 Hypercholesterolemia 136 93808 E78.00 healthy diet continue atorvastat in Impaired f asting glycemia 441967950 R73.01 Essential hypertension 28208966 I10 very well controlled BP propranolo l likely used for essential tremor he was cut down from 160 to 80 and then some how ended back on 160 he is not having any fatigue so we will leave it that way Adult heal th examination 781648467 Z00.01 Goiter 6957044 E04.9 thyroid [place]ness [place], [place] [id number] DAIANA VELARDE [facility] [address] [facility],[place] [address] 09/07/2019 11:08:17 09/07/2019 11:54:27 Pain in left knee 4940316548 94222 M25.562 will refer to ortho to have him examined for possible quadriceps tear, LCL/latera l meniscus tear after the injury he sustained to it Pain in right knee 02753 78491 72507 M25.561 pain right knee not left [id number] DAIANA VELARDE [facility] [address] [facility],[place] [address] 10/24/2019 08:54:10 10/24/2019 09:30:12 Adult health examination 477546902 Z00.00 doing well BP is excellent today, 120/70 Active or passive immunization 372354046 Z23 waiting for pharmacies to start doing them again Ophthalmic examination and evaluation 94710313 Z01.00 age related vision loss would like to be checked [id number] DAIANA VELARDE [facility] [address] [facility],[place] [address] 01/04/2020 09:21:09 01/04/2020 09:56:56 Ulcerative colitis 18590816 K51.90 will set up with GI again having another UC flare up again prob compounded by eating habits Essential hypertension 04397087 I10 BP excellent today [id number] DAIANA VELARDE [facility] [address] [facility] [address],[place] [address] 10/24/2020 08:51:25 10/24/2020 09:55:23 Active or passive immunization 534163563 Z23 waiting for pharmacies to start doing them again Adult heal th examination 725653910 Z00.00 doing well BP is excellent today, 110/70 [id number] DAIANA VELARDE [facility] [address] [facility],[place] [address] 07/10/2021 13:42:24 07/12/2021 09:43:44 Type 2 diabetes mellitus 85439993 E11.9 will fu with recheck in three months the patient will fu with starting on 500 mg Ulcerative colitis 92011 004 K51.90 has a fu with GI as well [id number] DAIANA VELARDE [facility] [address] [facility],[place] [address] 04/21/2022 09:20:36 04/21/2022 14:09:05 Anxiety 70667191 F41.1 stable Essential hypertension 68133675 I10 BP excellent today Gastroesop hageal reflux disease 257841088 K21.9 stable Impaired f asting glycemia 100048769 R73.01 stable; average glucose is 100 which is excellent Type 2 martha betes mellitus 26629330 E11.9 A1c is perfect at 5.1 [id number] DAIANA VELARDE [facility] [address] [facility],[place] [address] 12/12/2022 11:40:07 12/12/2022 12:06:51 Anxiety 57881833 F41.1 stable Essential hypertension 77630001 I10 BP excellent today Gastroesop hageal reflux disease 137696263 K21.9 stable Hypercholesterolemia 136 82497 E78.2 stable Type 2 martha betes mellitus 50339937 E11.9 A1c is perfect at 5.0 % Ulcerative colitis 42220 004 K51.90 stable [id number] DAIANA VELARDE [facility] [address] [facility],[place] [address] 02/15/2024 08:51:28 02/15/2024 11:20:46 Acute low back pain 100561758 M54.59 needs refill Mixed hyperlipidemia 267 605545 E78.2 labs ordered Type 2 martha betes mellitus 00401809 E11.9 A1c is perfect at 5.0 % at last check Hypercholesterolemia 136 82310 E78.2 stable Essential hypertension 79766598 I10 BP excellent today Hereditary hemochromatosis 33033611 E83.110 still getting blood draws, doing well [id number] DAIANA VELARDE [facility] [address] [facility],[place] [address] 06/06/2024 09:23:10 06/06/2024 11:28:23 Rosacea, erythematous telangiectatic type 303829 L71.8 start on topical Type 2 martha betes mellitus 46794137 E11.9 stablehad lab work done, never sent the results back, will request Colitis 46382725 K51.90 stable per patient Hereditary hemochromatosis 50688848 E83.110 still getting blood draws, doing wellgoing every 2 mos now Health Concerns Section Related Observation LastModified by Organization Detai ls LastModified Time None Recorded Concern Status LastModified by Organization Details LastModified Time None Recorded Advance Directives Directive None Recorded Payers Encounter Date Sequence Insurance Name Policy Number Policy Alves Covered Member ID Alves Member ID Guarantor Name 07/10/2021 1 [facility]IC[facility] PREFERRED (MEDICARE REPLACEMENT HMO) [facility] [id number] Caleb Ruffin 04/21/2022 1 [facility] - MEDIC[facility] PREFERRED (MEDICARE REPLACEMENT HMO) [facility] [id number] Caleb Ruffin 12/12/2022 1 [facility] - MEDIC[facility] PREFERRED (MEDICARE REPLACEMENT HMO) [facility] Augustin [id number] Calebbenjamin Ruffin 02/15/2024 1 [facility] - MEDICARE PREFERRED (MEDICARE REPLACEMENT HMO) [facility] Augustin [id number] 1 [id number] Calebbenjamin Ruffin 06/06/2024 1 [facility] - MEDIC[facility] PREFERRED (MEDICARE REPLACEMENT HMO) [facility] [id number] 1 [id number] Caleb Ruffin Notes Date Note Type Note Provider Name and Address Organization Details Recorded Time 07/11/19 22 text/htm l f/u new T2DM [...] BW in 3 mos DAIANA VELARDE [address] [place], [address], [facility] 07/10/2021 14:20:37 04/21/19 23 text/htm l f/u lab work T2DM: much improved with glipizidelevels are [id number] is 5.1% HTN: today in the office [...] todaypatient doing really well DAIANA VELARDE [address] [place], [address], [facility] 04/21/2022 09:42:53 12/13/19 [...] excellent feeling really good DAIANA VELARDE [address] [place], [address], [facility] 12/12/2022 12:02:58 02/15/20 [...] 2 mos nowno issues otherwise DAIANA VELARDE [address] [place], [address], [facility] 02/15/2024 11:01:35 06/07/19 25 text/htm l c/o rash the patient reports that he has noticed that for the past yearthe patient has rosacea, telangiectatic type, no lesions, rashes, dry patches, or new molesuses zinc oxide on it, recommended trying metronidazole cream insteadpossible doxycyline in the future if it worsenspatient not bothered by it, was just wanting to r/o any skin cancersno new moles and lesions, has been stable for a year, no worsening of the conditions, just wanted to have it checked colitis is stable, feeling good overall did have lab work for his a1c about a month ago we still don't have the resultswill have [place] call for results still getting therapeutic blood draws for the hemochromatosis, going every 2 mos now, no complications feels really good overall DAIANA VELARDE [address] [place], [address], [facility] 06/06/2024 09:41:11
== END 2024-06-30 11:48 | disposition home or self-care (01) ==
LOC: HO.BBR 11:47
PROVIDERS: PCP Internal Medicine; Visit Provider Physician Assistant
DX: Z13.89 Encounter for screening for other disorder (principal)

== ENCOUNTER 2024-08-30 11:50 | Outpatient (REF) | payer MEDICARE, SELFPAY ==
--- OUTSIDE RECORDS SUMMARY | 2024-08-30 13:21 | XMS_ITS | Data Portability ---
Author Organization [facility], Home Service Address [address] [place] [address] Assessment Encounter Date Assessment Date Assessment LastModified [...] Lab CMP, serum or plasma 2023 024 [facility], [address] [place] [address], [address], 4 10:59:04 lipid panel, blood 2023 024 [facility], [address] [place] [address], [address], 4 10:59:04 hemoglobin A1c, QN, blood 2023 024 [facility], [address] [place] [address], [address], 4 10:59:04 CBC w/ auto diff 2023 024 [facility], [address] [place] [address], [address], 4 10:59:04 HbA1c (hemoglobi n A1c), blood 2022 023 [facility], [address] [place] [address], [address], 3 09:46:51 CMP, serum or plasma 2022 023 [facility], [address] [place] [address], [address], 3 09:46:51 lipid panel, blood 2022 023 [facility], [address] [place] [address], [address], 3 09:46:51 hemoglobin A1c, QN, blood 2022 023 [facility], [address] [place] [address], [address], 3 09:46:51 hemoglobin A1c, QN, blood 2021 022 [facility], [address] [place] [address], [address], 2 13:59:11 CMP, serum or plasma 2021 022 [facility], [address] [place] [address], [address], 2 13:59:11 hemoglobin A1c, QN, blood 2021 022 [facility], [address] [place] [address], [address], 13:59:11 CMP, serum or plasma 2021 022 [facility], [address] [place] [address], [address], 13:59:11 Referral ophthalmol ogist referral 2022 023 zoraida Allison MD PHD, [address] [place], [place] [address]audi Carnes, [place], [address], 3 08:42:24 Procedures None recorded. Surgeries None recorded. Imaging None recorded. Medication Orders metronidaz ole 0.75 % topical cream 2024 025 [facility][id number], [address] [place], [address], 5 09:37:00 atorvastat in 40 mg tablet 2023 024 [facility], [address] [place], [address], 4 10:57:53 cyclobenza gera 10 mg tablet 2023 024 [facility], [address] [place], [address], 4 10:57:53 glipizide ER 5 mg tablet, extended release 24 hr 2023 024 [facility]037[facility], [address] [place], [address], 4 10:57:53 fenofibrat e nanocrysta llized 48 mg tablet 2023 024 [facility]037[facility], [address] [place], [address], 4 10:57:54 metformin 500 mg tablet [address] [facility] #0373, [address] [place], [address], 2 11:52:14 Patient TargetsNo targets recorded. Patient InstructionsNo instructions recorded. Reason for Referral Sugar Controller Referral for Type 2 diabetes mellitus needs eye exam, possible cataracts Referring Physician: Danyelle Noble, Internal Medicine, Encounter Date: 12/12/2022 Results Created Date Observation Date Name Description Value Unit Range Abnormal Flag Note LastModifiedBy Organization Detail LastModifiedTime 08/03/19 22 08/02/2021 US, abdom en No observ ation record ed. [email or web address] [facility] Radiology (Mammo) [address] [place], [address], 08/02/2021 13:58:49 Result Notes None recorded. Problems Name Problem SNOMED Code Status Onset Date Resolution Date Notes Provider Name and Address Organization Details Recorded Time Hypercho lesterol emia 89376264 Active 2017 Not Available [facility] 3 11:42:59 History of depressi on 998578958 Active 2017 Not Available [facility] 3 11:42:59 Anxiety 68073182 Active 2017 Not Available [facility] 3 11:42:59 Osteoart hritis 005612047 Active 2017 Not Available [facility] 3 11:42:59 History of operativ e procedur e on knee 535582523 Active 2017 Left 1973 , Right 2009 Not Available [facility] 3 11:42:59 Arthriti s 2536820 Active 2017 Not Available [facility] 3 11:42:59 Umbilica l hernia 648770197 Active 2017 Not Available [facility] 3 11:42:59 Hemorrho ids 88574340 Active 2017 Not Available [facility] 3 11:42:59 Gastroes ophageal reflux disease 726905459 Active 2017 Not Available [facility] 3 11:42:59 Impaired fasting glycemia 214945452 Active 2017 Not Available [facility] 3 11:42:59 Hearing loss 90416769 Active 2017 Not Available [facility] 3 11:42:59 Hydroure teroneph rosis 06786772 Active 2017 2/[address] 09/13/15 Not Available [facility] 3 11:42:59 Internal hemorrho ids 52010978 Active 2017 Not Available [facility] 3 11:42:59 Steatoti c liver disease 099218530 Active 2017 stable 1.4 cn lesion Left hepatic lobe Not Available [facility] 3 11:42:59 Ulcerati ve colitis 35413581 Active 2019 Not Available [facility] 3 11:42:59 Type 2 diabetes mellitus 01253284 Active 2021 Not Available [facility] 3 11:42:59 Heredita ry hemochro matosis 93068148 Active 2023 DAIANA VELARDE [address] [place], [address], [facility] 4 16:51:26 Essentia l tremor 143614340 Active 2023 Ishan Baker DO [address] [place], [address], [facility] 4 13:32:53 Acute low back pain 852567315 Active 2023 DAIANA VELARDE [address] [place], [address], [facility] 4 10:54:45 Mixed hyperlip idemia 930414171 Active 2023 DAIANA VELARDE [address] [place], [address], [facility] 4 11:01:13 Rosacea, erythema tous telangie ctatic type 986041 Active 20[address] [place] [address], [address], [facility] 5 09:35:17 Colitis 42792983 Active 2024 DAIANA VELARDE [address] [place] [address], [address], [facility] 5 09:37:29 [facility] 50554407 Active 2017 Not Available [facility] 3 11:42:59 Notes:Some problems listed i n Document: #[id number] could not be added to this patient's chart. Please review this document and add these problems to the patient's chart manually as needed. Problem Notes None recorded. Procedures Surgical History Date Name Laterality Status Provider Name and Address Organization Details Recorded Time Colonoscopy completed Rosenda Fontaine [facility] 11/27/2017 16:57:59 Imaging Results None recorded. Procedure Notes None recorded. Medical Equipment None [...] TABLET BY MOUTH THREE TIMES A DAY 2024 active Not Available Not Available Not Avai lable amoxicillin 875 mg tablet TAKE 1 TABLET BY MOUTH TWICE A DAY UNTIL FINISHED 07/10 completed Not Available Not Available Not Available paroxetine 30 mg tablet 1 po qd 2024 active Not Available Not Available Not Avai lable simvastatin 20 mg tablet 09/22 completed Not [...] Not Available Not Avai lable Fluarix Quad 6231-8929 (PF) 60 mcg (15 mcg x 4)/0.5 [...] /min 98 mm[Hg] 62 mm[Hg] Winsome [facility] 3 09:29:46 Date Recorded Body height Body mass index (BMI) Body weight Heart rate Oxygen saturation Oxygen saturation in Arterial blood by Pulse oximetry Systolic blood pressure Diastolic blood pressure Provider Name and Address Organization Details Last Updated DateTime 5 193.04 cm 28.2 kg/m2 914696. 43 g 57 /min 99 % 99 % 120 mm[Hg] 70 mm[Hg] Pamela [facility] 5 09:29:45 Date Recorded Body height Oxygen saturation Oxygen saturation in Arterial blood by Pulse oximetry Heart rate Systolic blood pressure Diastolic blood pressure Provider Name and Address Organization Details Last Updated DateTime 2 193.67 cm 96 % 96 % 58 /min 118 mm[Hg] 60 mm[Hg] [facility] 2 14:00:25 Date Recorded Body height Body mass index (BMI) Body weight Heart rate Oxygen saturation Oxygen saturation in Arterial blood by Pulse oximetry Systolic blood pressure Diastolic blood pressure Provider Name and Address Organization Details Last Updated DateTime 3 193.67 cm 27.4 kg/m2 004066. 67 g 69 /min 96 % 96 % 108 mm[Hg] 70 mm[Hg] DAIANA VELARDE [address] [place], [address] [facility] 3 11:48:10 Social History Question Answer Notes LastModified by Organizat ion Details LastModified Time Tobacco Smoking Status Former Smoker Not Available [facility] 01/31/2020 03:36:24 What Was The Date Of Your Most Recent Tobacco Screening? 06/06/2024 [email or web address] Information not available 06/06/2024 How Many Years Have You Smoked Tobacco? 12 [id number] Information not available 01/31/2020 Sex: Unknown Functional Status Question Answer Note LastModified by Organization D etails LastModified Time Do you or have you ever used any other forms of tobacco or nicotine? No [email or web address] Information not available 06/06/2024 Mental Status None recorded. Family History Relationship [...] quadrivalent, preservative 12/18/19 18 completed Not Available [facility] 12/16/2021 12:44:51 COVID-19, mRNA, LNP-S, PF, 100 mcg/0.5mL dose or 50 mcg/0.25mL dose 03/11/20 21 completed Not Available [facility] 12/16/2021 12:44:51 COVID-19, mRNA, LNP-S, PF, 100 mcg/0.5mL dose or 50 mcg/0.25mL dose 08/10/19 22 completed Not Available [facility] 12/16/2021 12:44:51 Pneumococcal conjugate PCV20, polysaccharide HXO717 conjugate, adjuvant, PF 08/10/19 22 completed Not Available [facility] 07/04/2022 03:01:06 Tdap 11/08/19 22 completed Not Available [facility] 12/16/2021 12:44:51 Influenza, split virus, quadrivalent, preservative 12/19/19 22 completed Ishan Baker, DO [address] [facility], [place], [address], [facility] 12/22/2021 15:21:21 COVID-19, mRNA, LNP-S, PF, 100 mcg/0.5mL dose or 50 mcg/0.25mL dose 12/31/19 22 completed Sophia kwon, [facility] 01/01/2022 13:31:30 influenza, unspecified formulation 11/20/19 24 completed Leidy kwon, [facility] 11/23/2023 08:36:59 zoster, unspecified formulation 05/25/19 25 completed Leidy Garnica [facility], [facility] 05/27/2024 09:50:21 influenza, unspecified formulation 05/25/19 25 completed Leidy Garnica [facility], [facility] 05/27/2024 09:50:32 zoster recombinant 12/19/19 20 completed Not Available [facility] 12/16/2021 12:44:51 Influenza, split virus, quadrivalent, preservative 11/29/19 20 completed Not Available [facility] 12/16/2021 12:44:51 COVID-19, mRNA, LNP-S, PF, 100 mcg/0.5mL dose or 50 mcg/0.25mL dose 07/01/19 21 completed Not Available [facility] 12/16/2021 12:44:51 COVID-19, mRNA, LNP-S, PF, 100 mcg/0.5mL dose or 50 mcg/0.25mL dose 07/31/19 21 completed Not Available [facility] 12/16/2021 12:44:51 Tdap 03/30/19 16 completed Not Available [facility] 12/16/2021 12:44:51 zoster recombinant 02/05/20 16 completed Not Available [facility] 12/16/2021 12:44:51 Past Encounters Encounter ID Performer Location Encounter Start Date Encounter Closed Date Diagnosis/Indication Diagnosis SNOMED-CT Code Diagnosis ICD10 Code Diagnosis Note [id number] Ishan Baker DO [facility] [address] [facility],[place]uth[place] [address] 09/22/2017 11:07:11 09/22/2017 11:52:14 Chronic back pain 243892841 M54.5 not recommendi ng or endorsing permanent disability for this at this time. recommend having spinal imaging and probably spinal specialist work up. Thoracic back pain 54083 8004 M54.6 not recommendi ng or endorsing permanent disability for this at this time. recommend having spinal imaging and probably spinal specialist work up. Essential tremor 3353797 09 G25.0 I do not believe this warrants permanent disability . Lumbar radiculopathy 128 467130 M54.16 of left foot [id number] Ishan Baker [facility] [address] [facility],[place] [address] 12/01/2017 08:51:32 12/01/2017 10:37:46 Hypercholesterolemia 91635408 E78.00 in addition to healthy diet Impaired f asting glycemia 638113026 R73.01 Essential hypertension 38234990 I10 very well controlled BP propranolo l likely used for essential tremor will decrease dose as he reports some tiredness, also to see if triglyceri alyssa will be positively effected Adult heal th examination 497408158 Z00.01 Goiter 6587379 E04.9 thyroid fullness on left side, will check u/s Chronic back pain 713651 002 M54.5 will see ortho for eval of chronic back issues [id number] Ishan Baker [facility] [address] [facility],[place] [address] 04/27/2018 08:49:59 04/27/2018 09:35:12 Hypercholesterolemia 47681677 E78.00 improved from prior on atorvastat in and fenofibrat e for cholestero l in addition to healthy diet and exercies Gastroesop hageal reflux disease 423879382 K21.9 no problems, rare sx Impaired f asting glycemia 977115775 R73.01 improved from prior labs normal fbs, has cut back on junk food Steatotic liver disease 810946776 K76.0 near normal labs, improved from prior labs History of depression 16 6314541 Z86.59 Essential hypertension 44985450 I10 very well controlled BP propranolo l likely used for essential tremor lowering dose of propranolo l improved energy levels Vitamin D deficiency 347 21886 E55.9 [id number] Ishan Baker [facility] [address] [facility],[place] [address] 10/22/2018 08:51:51 10/22/2018 10:07:26 Anxiety 64940376 F41.9 Hypercholesterolemia 136 07379 E78.00 healthy diet continue atorvastat in Impaired f asting glycemia 677194503 R73.01 Essential hypertension 88559395 I10 very well controlled BP propranolo l likely used for essential tremor he was cut down from 160 to 80 and then some how ended back on 160 he is not having any fatigue so we will leave it that way Adult heal th examination 903139362 Z00.01 Goiter 6120520 E04.9 thyroid [place], [place] [id number] Ishan Baker DO [facility] [address] [facility],[place] [address] 09/07/2019 11:08:17 09/07/2019 11:54:27 Pain in left knee 7561677852 57309 M25.562 will refer to ortho to have him examined for possible quadriceps tear, LCL/latera l meniscus tear after the injury he sustained to it Pain in right knee 29734 71917 87218 M25.561 pain right knee not left [id number] Ishan Baker DO [facility] [address] [facility],[place] [address] 10/24/2019 08:54:10 10/24/2019 09:30:12 Adult health examination 214273147 Z00.00 doing well BP is excellent today, 120/70 Active or passive immunization 968003385 Z23 waiting for pharmacies to start doing them again Ophthalmic examination and evaluation 00256583 Z01.00 age related vision loss would like to be checked [id number] Ishan Baker DO [facility] [address] [facility],[place] [address] 01/04/2020 09:21:09 01/04/2020 09:56:56 Ulcerative colitis 83018256 K51.90 will set up with GI again having another UC flare up again prob compounded by eating habits Essential hypertension 72291618 I10 BP excellent today [id number] Ishan Baker DO [facility] [address] [facility],[place] [address] 10/24/2020 08:51:25 10/24/2020 09:55:23 Active or passive immunization 572272538 Z23 waiting for pharmacies to start doing them again Adult heal th examination 293686351 Z00.00 doing well BP is excellent today, 110/70 [id number] Ishan Baker DO [facility] [address] [facility], [facility] [place] [address] 07/10/2021 13:42:24 07/12/2021 09:43:44 Type 2 diabetes mellitus 20158968 E11.9 will fu with recheck in three months the patient will fu with starting on 500 mg Ulcerative colitis 02751 004 K51.90 has a fu with GI as well [id number] Ishan Baker DO [facility] [address] [facility], [place] [address] 04/21/2022 09:20:36 04/21/2022 14:09:05 Anxiety 47820530 F41.1 stable Essential hypertension 50021333 I10 BP excellent today Gastroesop hageal reflux disease 226460768 K21.9 stable Impaired f asting glycemia 094568290 R73.01 stable; average glucose is 100 which is excellent Type 2 martha betes mellitus 88779934 E11.9 A1c is perfect at 5.1 [id number] Ishan Baker DO [facility] [address] [facility], [address] [facility] [place] [address] 12/12/2022 11:40:07 12/12/2022 12:06:51 Anxiety 18394989 F41.1 stable Essential hypertension 24368020 I10 BP excellent today Gastroesop hageal reflux disease 705833775 K21.9 stable Hypercholesterolemia 136 06673 E78.2 stable Type 2 martha betes mellitus 29246302 E11.9 A1c is perfect at 5.0 % Ulcerative colitis 51583 004 K51.90 stable [id number] Ishan Baker DO [facility] [address] [facility], [facility] [facility] [address] 02/15/2024 08:51:28 02/15/2024 11:20:46 Acute low back pain 095729784 M54.59 needs refill Mixed hyperlipidemia 267 649873 E78.2 labs ordered Type 2 martha betes mellitus 47437015 E11.9 A1c is perfect at 5.0 % at last check Hypercholesterolemia 136 98425 E78.2 stable Essential hypertension 76027746 I10 BP excellent today Hereditary hemochromatosis 35920045 E83.110 still getting blood draws, doing well [id number] DO [facility] [address] [facility],[place] [address] 06/06/2024 09:23:10 06/06/2024 11:28:23 Rosacea, erythematous telangiectatic type 040305 L71.8 start on topical Type 2 martha betes mellitus 42372204 E11.9 stablehad lab work done, never sent the results back, will request [facility] 14549670 K51.90 stable per patient Hereditary hemochromatosis 16793800 E83.110 still getting blood draws, doing wellgoing every 2 mos now Health Concerns Section Related Observation LastModified by Organization Detai ls LastModified Time None Recorded Concern Status LastModified by Organization Details LastModified Time None Recorded Advance Directives Directive None Recorded Payers Encounter Date Sequence Insurance Name Policy Number Policy Alves Covered Member ID Alves Member ID Guarantor Name 07/10/2021 1 [facility] - MEDICARE PREFERRED (MEDICARE REPLACEMENT HMO) [facility] Augustin [id number] Caleb Ruffin 04/21/2022 1 [facility] - MEDICARE PREFERRED (MEDICARE REPLACEMENT HMO) [facility] C[facility] Augustin [id number] Caleb Ruffin 12/12/2022 1 [facility] - MEDICARE PREFERRED (MEDICARE REPLACEMENT HMO) [employer] Caleb Augustin [id number] Caleb Ruffin 02/15/2024 1 [facility] - MEDICARE PREFERRED (MEDICARE REPLACEMENT HMO) [facility] Caleb Augustin [id number] Caleb Ruffin 06/06/2024 1 [facility] - MEDICARE PREFERRED (MEDICARE REPLACEMENT HMO) [facility] C[facility] Augustin [id number] Caleb Ruffin Notes Date Note Type Note [...] BW in 3 mos DAIANA VELARDE [address] [place], [address], [facility] 07/10/2021 14:20:37 04/21/19 text/htm l f/u lab work T2DM: much improved with glipizidelevels are rypkolothT6t is 5.1% HTN: today in the office [...] todaypatient doing really well DAIANA VELARDE [address] [place], [address], [facility] 04/21/2022 09:42:53 12/13/19 text/htm l f/u med check anxiety: stablexanax [...] excellent feeling really good DAIANA VELARDE [address] [place], [address], [facility] 12/12/2022 12:02:58 02/15/20 text/htm l f/u med check The patient [...] mos nowno issues otherwise DAIANA VELARDE [address] [place], [address], [facility] 02/15/2024 11:01:35 [...] month ago we still don't have the resultsjamal cobb [place] call for results still getting therapeutic blood draws for the hemochromatosis, going every 2 mos now, no complications feels really good overall DAIANA VELARDE [address] [place], [address], [facility] 06/06/2024 09:41:11
== END 2024-08-30 11:51 | disposition home or self-care (01) ==
LOC: HO.BBR 11:50
PROVIDERS: PCP Physician Assistant; Visit Provider Physician Assistant
DX: Z13.89 Encounter for screening for other disorder (principal)

== ENCOUNTER 2024-11-01 11:57 | Outpatient (REF) | payer MEDICARE, SELFPAY ==
--- OUTSIDE RECORDS SUMMARY | 2024-11-01 12:45 | XMS_ITS | Encounter Summary ---
Author Organization [facility] Address [address] [place] [address] Phone Care Team Providers Care Furnace Unloader Name Role Phone Ishan Baker DO Primary Care Provider Encounter Details Date Type Department Care Team (Latest Contact Info) Description 08/12/2022 Transcribe Orders Virtual Department [address] [place] [address] Tammy Emerson PA-C [address] [place] [address] [email or web address] Hemochromatosis, unspecified hemochromatosis type (Primary Dx) Social History Tobacco Use Types Packs/Day Years Used Date Smoking Tobacco: Former Cigarettes Q uit: 1975 Smokeless Tobacco: Never Alcohol Use Standard Drinks/Week Comments Yes 1 (1 standard drink = 0.6 oz pur e alcohol) Education Answer Date Recorded Are you interested in more education? Not on jahaira e 07/25/2022 Are you concerned about learning? Not on file 07/25/2022 No 07/25/2022 No 07/25/2022 Sex and Gender Information Value Date Recorded Sex Assigned at Not on file Legal Sex Male 3:26 PM EDT Gender Identity Not on file Sexual Orientation Not on file documented as of this encounter Plan of Treatment Not on file documented as of this encounter Results * US ABDOMEN LIMITED RIGHT UPPER QUADRANT (08/29/2022 8:53 AM EDT) Anatomical Region Laterality Modality Abdomen Ultrasound 08/29/2022 9:07 AM EDT Impressions 08/29/2022 9:11 AM EDT Increased liver echogenicity compatible with chronic liver disease. Newly apparent 5 mm nonmobile gallbladder polyp. It was likely obscured on the prior exam due to the ultrasound technique. RECOMMENDATIONS: 6 month gallbladder ultrasound Narrative 08/29/2022 9:11 AM EDT US ABDOMEN LIMITED RIGHT UPPER QUADRANT TECHNIQUE: US Abdominal limited right upper quadrant. COMPARISON: August 02, 2021 FINDINGS: Liver: Increased liver echogenicity compatible with chronic liver disease. No focal liver lesions. Main Portal Vein: Patent with normal direction of flow. Gallbladder: Newly apparent 5 mm nonmobile gallbladder polyp. It was likely obscured on the prior exam due to the ultrasound technique. Biliary: Normal. No intrahepatic or extrahepatic biliary ductal dilatation. The common bile duct measures 4 mm. Procedure Note Best Jacob MD, DEBBIE - 08/29/2022 US ABDOMEN LIMITED RIGHT UPPER QUADRANT TECHNIQUE: US Abdominal limited right upper quadrant. COMPARISON: August 02, 2021 FINDINGS: Liver: Increased liver echogenicity compatible with chronic liver disease.No focal liver lesions. Main Portal Vein: Patent with normal direction of flow. Gallbladder: Newly apparent 5 mm nonmobile gallbladder polyp. It waslikely obscured on the prior exam due to the ultrasound technique. Biliary: Normal. No intrahepatic or extrahepatic biliary ductaldilatation. The common bile duct measures 4 mm. IMPRESSION: Increased liver echogenicity compatible with chronic liver disease. Newly apparent 5 mm nonmobile gallbladder polyp. It was likely obscured onthe prior exam due to the ultrasound technique. RECOMMENDATIONS: 6 month gallbladder ultrasound us Tammy Emerson PA-C IMBecky US ABDOMEN Final Result documented in this encounter Visit Diagnoses Diagnosis Hemochromatosis, unspecified hemochromatosis type- Primary Hemochromatosis, unspecified hemochromatosis type documented in this encounter Care Teams Furnace Unloader Relationship Specialty Start Date End Date Ishan Baker DO [email or web address] PCP - General Internal Medicine 10/21/17 documented as of this encounter Additional Source Comments The information contained in this document represents components of the legal health record. It is not the complete legal health record.[facility]
--- OUTSIDE RECORDS SUMMARY | 2024-11-01 12:45 | XMS_ITS | Patient Health Record ---
Author Organization [facility] Address [address] [place] [address] Care Team Providers Care Executive Vice President Business Development Name Role Phone Ishan Baker Primary Care Provider Salas Lemon Jr Unavailable Reason For Referral No Information Plan Of Treatment No Information Insurance Providers Payer Name Payer Address Payer Phone Subscriber Number Group Number Insured Name Patient Relationship to Insured Coverage Start Date Coverage End Date [facility] [address] [place] [address] [id number] ELIF PAZ Self - patient is the insured
== END 2024-11-01 11:58 | disposition home or self-care (01) ==
LOC: HO.BBR 11:57
PROVIDERS: PCP Internal Medicine; Visit Provider Physician Assistant
DX: Z13.89 Encounter for screening for other disorder (principal)

== ENCOUNTER 2024-12-14 07:30 | Outpatient (REF) | payer MEDICARE, SELFPAY ==
--- OUTSIDE RECORDS SUMMARY | 2024-12-14 07:33 | XMS_ITS | Encounter Summary ---
Author Organization [facility] Address [address] [place] [address] Phone Care Team Providers Care Jumbo Operator Name Role Phone Ishan Baker DO Primary Care Provider [phone] Encounter Details Date Type Department Care Team (Late st Contact Info) Description 10/16/2021 Procedure Pass [facility] Endoscopy Admitting Dept Virtual Department [address] [place] [address] Social History Tobacco Use Types Packs/Day Years Used Date Smoking Tobacco: Former Cigarettes Q uit: 1975 Smokeless Tobacco: Never Alcohol Use Standard Drinks/Week Comments Yes 1 (1 standard drink = 0.6 oz pur e alcohol) Sex and Gender Information Value Date Recorded Sex Assigned at Not on file Legal Sex Male 3:26 PM EDT Gender Identity Not on file Sexual Orientation Not on file documented as of this encounter Plan of Treatment Not on file documented as of this encounter Visit Diagnoses Not on filedocumented in this encounter Care Teams Jumbo Operator Relationship Specialty Start Date End Date Ishan Baker DO PCP - General Internal Medicine 10/21/17 documented as of this encounter Additional Source Comments The information contained in this document represents components of the legal health record. It is not the complete legal health record.[facility]
--- OUTSIDE RECORDS SUMMARY | 2024-12-14 07:33 | XMS_ITS | Encounter Summary ---
Author Organization [facility] Address [address] [place] [address] Phone Care Team Providers Care Motion Picture Projectionist Name Role Phone Ishan Baker DO Primary Care Provider [phone] Encounter Details Date Type Department Care Team (Latest Contact Info) Description 07/10/2021 Transcribe Orders Virtual Department [address] [place] [address] Tammy Emerson PA-C [address] [place] [address] Elevated LFTs (Primary Dx) Social History Tobacco Use Types Packs/Day Years Used Date Smoking Tobacco: Never Assessed Sex and Gender Information Value Date Recorded Sex Assigned at Not on file Legal Sex Male 3:26 PM EDT Gender Identity Not on file Sexual Orientation Not on file documented as of this encounter Plan of Treatment Not on file documented as of this encounter Results * US ABDOMEN LIMITED RIGHT UPPER QUADRANT (08/02/2021 9:22 AM EDT) Anatomical Region Laterality Modality Abdomen Ultrasound 08/02/2021 10:0 4 AM EDT Impressions 08/02/2021 10:06 AM EDT 1. Findings consistent with hepatocellular disease which may be on the basis of fatty infiltration. No focal hepatic lesions. 2. No evidence of cholelithiasis, cholecystitis or biliary ductal dilatation. Narrative 08/02/2021 10:06 AM EDT HISTORY: Elevated liver function tests. COMPARISON: None. FINDINGS: A right upper compression study is performed. Biliary: The gallbladder appears normal. No sonographic Rosario sign or evidence of pericholecystic fluid. Proximal common duct normal measuring 4 mm in diameter. Liver: The liver is moderately hyperechoic diffusely and somewhat difficult to penetrate with sound. No evidence of hepatic masses. Liver grossly normal in size. Normal hepatopedal blood flow in the main portal vein. Pancreas: No abnormalities demonstrated. Right Kidney: No abnormalities demonstrated on limited imaging of the right kidney. Procedure Note Carroll Walton MD - 08/02/2021 HISTORY: Elevated liver function tests. COMPARISON: None. FINDINGS: A right upper compression study is performed. Biliary: The gallbladder appears normal. No sonographic Rosario sign orevidence of pericholecystic fluid. Proximal common duct normal measuring 4mm in diameter. Liver: The liver is moderately hyperechoic diffusely and somewhatdifficult to penetrate with sound. No evidence of hepatic masses. Livergrossly normal in size. Normal hepatopedal blood flow in the main portalvein. Pancreas: No abnormalities demonstrated. Right Kidney: No abnormalities demonstrated on limited imaging of theright kidney. IMPRESSION: 1. Findings consistent with hepatocellular disease which may be on thebasis of fatty infiltration. No focal hepatic lesions. 2. No evidence of cholelithiasis, cholecystitis or biliary ductaldilatation. us Tammy Emerson PA-C IMG US ABDOMEN Final Result documented in this encounter Visit Diagnoses Diagnosis Elevated LFTs- Primary Other abnormal blood chemistry Elevated LFTs Other abnormal blood chemistry documented in this encounter Care Teams Motion Picture Projectionist Relationship Specialty Start Date End Date Ishan Baker DO [email or web address] PCP - General Internal Medicine 10/21/17 documented as of this encounter Additional Source Comments The information contained in this document represents components of the legal health record. It is not the complete legal health record.[facility]
--- OUTSIDE RECORDS SUMMARY | 2024-12-14 07:33 | XMS_ITS | Encounter Summary ---
Author Organization [facility] Address [address] [place] [address] Phone Care Team Providers Care Woodwind Instrument Repairer Name Role Phone Ishan Baker DO Primary Care Provider [phone] Encounter Details Date Type Department Care Team (Late st Contact Info) Description 10/22/2017 Procedure Pass [facility] Endoscopy Admitting Dept Virtual Department [address] [place] [address] Social History Tobacco Use Types Packs/Day Years [...] on filedocumented in this encounter Care Teams Woodwind Instrument Repairer Relationship Specialty Start Date End Date Ishan Baker DO PCP - General Internal Medicine 10/21/17 documented as of this encounter Additional Source Comments The information contained in this document represents components of the legal health record. It is not the complete legal health record.[facility]
--- OUTSIDE RECORDS SUMMARY | 2024-12-14 07:33 | XMS_ITS | Patient Health Record ---
Author Organization [facility] Address [address] [place] [address] Care Team Providers Care Cancer Spec Name Role Phone Ishan Baker Primary Care Provider Salas Lemon Jr Unavailable Reason For Referral No Information Plan Of Treatment No Information Insurance Providers Payer Name Payer Address Payer Phone Subscriber Number Group Number Insured Name Patient Relationship to Insured Coverage Start Date Coverage End Date [facility] [address] [place] [phone] [id number] ELIF PAZ Self - patient is the insured
--- OUTSIDE RECORDS SUMMARY | 2024-12-14 07:33 | XMS_ITS | Encounter Summary ---
Author Organization [facility] Address [address] [place] [address] Phone Care Team Providers Care Locomotive Supervisor Name Role Phone Ishan Baker DO Primary Care Provider [phone] Encounter Details Date Type Department Care Team (Latest Contact Info) Description 08/12/2022 Transcribe Orders Virtual Department [address] [place] [address] Tammy Emerson PA-C [address] [place] [address] [email or web address] Hemochromatosis, unspecified hemochromatosis type (Primary [...] type documented in this encounter Care Teams Locomotive Supervisor Relationship Specialty Start Date End Date Ishan Baker DO [email or web address] PCP - General Internal Medicine 10/21/17 documented as of this encounter Additional Source Comments The information contained in this document represents components of the legal health record. It is not the complete legal health record.[facility]
--- OUTSIDE RECORDS SUMMARY | 2024-12-14 07:33 | XMS_ITS | Clinical Summary ---
Author Organization [facility] Address [address] [place] [address] Phone Care Team Providers Care Community Health Navigator Name Role Phone Nereyda Hoffman DO Primary Care Provider [phone] Allergies No known active allergies Medications ALPRAZolam (XANAX) 0.5 MG tablet Take 0.5 mg by mouth daily. Active PARoxetine (PAXIL) 10 MG tablet Take 10 mg by mouth every morning. Active atorvastatin (LIPITOR) 40 MG tablet Take 40 mg by mouth daily. Active fenofibrate (TRICOR) 48 MG tablet Take 48 mg by mouth daily. Active propranolol (INDERAL LA) 160 mg SR capsule Take 160 mg by mouth daily. Active primidone (MYSOLINE) 50 MG tablet Take 50 mg by mouth nightly at bedtime. Active glipiZIDE (GLUCOTROL XL) 5 MG 24 hr tablet glipizide ER 5 mg tablet, extended release 24 hr TAKE 1 TABLET BY MOUTH EVERY DAY Active mesalamine (LIALDA) 1.2 gram EC tablet Take 1,200 mg by mouth 2 (two) times a day. Active PARoxetine (PAXIL) 30 MG tablet Take 30 mg by mouth daily. Active Active Problems No known active problems Social History Tobacco Use Types Packs/Day Years Used Date Smoking Tobacco: Former Cigarettes Q uit: 1975 Smokeless Tobacco: Never Alcohol Use Standard Drinks/Week Comments Yes 1 (1 standard drink = 0.6 oz pur e alcohol) Education Answer Date Recorded Are you interested in more education? Not on jahaira e 07/25/2022 Are you concerned about learning? Not on file 07/25/2022 No 07/25/2022 No 07/25/2022 Digital Access Answer Date Recorded No 08/20/2022 No 08/20/2022 No 08/20/2022 Reliable internet access at home? Not on file 08/20/2022 Device with a working camera? Not on file Sex and Gender Information Value Date Recorded Sex Assigned at Not on file Legal Sex Male 3:26 PM EDT Gender Identity Not on file Sexual Orientation Not on file Last Filed Vital Signs Vital Sign Reading Time Taken Comments Blood Pressure 109/61 10/16/2021 1:20 PM EDT Pulse 54 10/16/2021 11:52 AM EDT Temperature 36.6 C (97.9 F) 10/16/2021 1:20 PM EDT Respiratory Rate 16 10/16/2021 11:52 AM EDT Oxygen Saturation 98% 10/16/2021 1:30 PM EDT Inhaled Oxygen Concentration - - Weight 97.5 kg (215 lb) 10/15/2021 12:34 PM EDT Height 193 cm (6' 4 ) 10/15/2021 12:34 PM EDT Body Mass Index 26.17 10/15/2021 12:34 PM EDT Plan of Treatment Health Maintenance Due Date Last Done Comments LIPID PANEL 1955 DEPRESSION SCREENING 1967 SMOKING Hx and SMOKELESS TOBACCO SCREENING 10/20/1968 COLOGUARD 10/20/2000 FIT TEST 10/20/2000 FOBT 10/20/2000 SIGMOIDOSCOPY 10/20/2000 VIRTUAL COLONOSCOPY 10/20/2000 ZOSTER VACCINES (3 of 3) 02/13/2020 12/19/2019, 10/2015 ABDOMINAL AORTIC ANEURYSM (AAA) SCREENING 10/20/2020 INFLUENZA VACCINE (#1) 2024 2, 12/26/2020, 11/29/2019, Additional history exists COVID-19 VACCINE ( season) 2024 12/30/2021, 08/09/2021, 03/11/2021, Additional history exists RSV VACCINE (1 - 1-dose 75+ series) 10/20/2030 COLONOSCOPY 10/17/2031 10/16/2021, 10/22/2017 COLORECTAL CANCER SCREENING 10/17/2031 Adult Td,Tdap Booster 11/08/2031 11/07/2021 , 09/07/2015, 03/30/2015 HEPATITIS C SCREENING Completed 07/10/2021 PNEUMOCOCCAL VACCINES (50+ years) Completed 08/09/2021 HEPATITIS A VACCINES Aged Out No long er eligible based on patient's age to complete this topic HIB VACCINES Aged Out No longer eligi ble based on patient's age to complete this topic MENINGOCOCCAL VACCINES (ACWY) Aged Out No longer eligible based on patient's age to complete this topic MENINGOCOCCAL VACCINES (B) Aged Out N o longer eligible based on patient's age to complete this topic Medical Devices Not on file Procedures Procedure Name Priority Date/Time Associated Diagnosis Comments ENDOSCOPY, COLON 10/16/2021 12:4 1 PM EDT HEPATITIS C ANTIBODY, QUALITATIVE Routine 07/10/2021 3:25 PM EDT Need for hepatitis C screening test from Last 3 Months or Most Recently Relevant to Health Maintenance Results * ENDOSCOPY, COLON (10/16/2021 12:41 PM EDT) Narrative Transcriptions Bobby Warren MD - 10/16/2021 12:41 PM EDT Patient Name: Caleb Ruffin Attending MD:: BOBBY WARREN MD, Procedure Date: 10/16/2021 12:41 PM Date of : 1955 Age: 65 Admit Type: Outpatient Gender: Male Room: [place] [address] Referring MD: NEREYDA HOFFMAN DO Exam Type: Colonoscopy Indications: High risk colon cancer surveillance: Personalhistory of colonic polyps Medications: Monitored Anesthesia Care Procedure: Informed consent was obtained from the patientafter discussion of the indications, limitations, alternatives, benefits, and risks of the procedure. Risks specifically discussed include but are not limited to medication reactions, missed lesions, bleeding, perforation, or the need for emergent surgery. Throughout the procedure, the patient's blood pressure, pulse, end-tidal CO2, and oxygensaturations were monitored continuously. The Olympus adult variable colonoscope CF-CT547J #1 was introduced through the anus and advanced to the cecum, identified by appendiceal orifice andileocecal valve. The colonoscopy was performed without difficulty. The patient tolerated the procedurewell. The quality of the bowel preparation was excellent. The quality of the bowel preparation was evaluated using the BBPS (Kaiser Bowel Preparation Scale)with scores of: Right Colon = 3, Transverse Colon = 3and Left Colon = 3 (entire mucosa seen well with no residual staining, small fragments of stool oropaque liquid). The total BBPS score equals 9. Anatomical landmarks were photographed. Complications: No immediate complications. Estimated blood loss: Minimal. Findings: Hemorrhoids were found on perianal exam. Two sessile polyps were found in the ascendingcolon. The polyps were 3 to 7 mm in size. These polypswere removed with a cold snare. Resection and retrieval were complete. Internal hemorrhoids were found duringretroflexion. The hemorrhoids were moderate. The exam was otherwise normal throughout theexamined colon. Impression: - Hemorrhoids found on perianal exam. - Two 3 to 7 mm polyps in the ascending colon,removed with a cold snare. Resected and retrieved. - Internal hemorrhoids. Recommendation: - Discharge patient to home. - Await pathology results. - Repeat colonoscopy in 5 years for surveillance. BOBBY WARREN MD, 10/16/2021 1:03:36 PM This report has been signed electronically. Number of Addenda: 0 Note Initiated On: 10/16/2021 12:41 PM Procedure Code(s): --- Professional --- 82266, Colonoscopy, flexible; with removal of tumor(s), polyp(s), or other lesion(s) by snare technique --- Technical --- 12061, Colonoscopy, flexible; with removal of tumor(s), polyp(s), or other lesion(s) by snare technique Diagnosis Code(s): --- Professional --- Z86.010, Personal history of colonic polyps K64.8, Other hemorrhoids K63.5, Polyp of colon --- Technical --- Z86.010, Personal history of colonic polyps K64.8, Other hemorrhoids K63.5, Polyp of colon CPT copyright 2020 [employer]. All rights reserved. The codes documented in this report are preliminary and upon high school music teacher reviewmay be revised to meet current compliance requirements. Procedure Date: 10/16/2021 12:41:[address] [place] [address] [place] Nereyda Hoffman DO GI PROCEDURE ORDERABLES Final Re sult * Hepatitis C antibody, qualitative (07/10/2021 3:25 PM EDT) HCV NON-REACTIV E NON-REACTI VE [facility] Blood 07/10/2021 3:25 PM EDT 07/10/2021 3:26 PM EDT us Tammy Emerson PA-C LAB BLOOD ORDERABLES Final Resu lt [address] [address] from Last 3 Months or Most Recently Relevant to Health Maintenance Insurance [employer]PLACEMENT HEALTH SAFETY NET PARTIAL MEDICARE PART A & B [employer] P[employer] REPLAC[employer] HEALTH SAFET[employer] NET PARTIAL MEDICARE PART A & B [employer] REPLAC[employer] SAFET[place] NET PARTIAL MEDICARE PART A & B [employer] REPLACEMENT Member Subscriber Plan / Payer (Ef fective 2019-Present) Name:Caleb Ruffin Relation to Subscriber:Self Name:Caleb Ruffin Payer ID:[id number] (NAIC) Group ID:[id number] Type:Medicare Address: [address] [id number] PARTIAL MEDICARE PART A & B [employer]REF[employer]ED H[employer] REPLACEMENT HEALTH SAFETY NET PARTIAL MEDICARE PART A & B [employer] PREF[employer] HMO REPLACEMENT [employer] NET PARTIAL MEDICARE PART A & B [employer] REPLACEMENT Member Subscriber Plan / Payer (Ef fective 2019-Present) Name:Caleb Ruffin Relation to Subscriber:Self Name:Leonid Ruffinic Payer ID:[id number] (NAIC) Group ID:[id number] Type:Medicare Address: [address] NET PARTIAL MEDICARE PART A & B [facility] MEDICARE PREFERRED HMO REPLACEMENT [facility] PARTIAL MEDICARE PART A & B [employer] PREF[employer]ED HMO REPLACEMENT HEALTH SAFETY NET PARTIAL MEDICARE PART A & B Care Teams Community Health Navigator Relationship Specialty Start Date End Date Nereyda Hoffman DO [email or web address] PCP - General Internal Medicine 10/21/17 Additional Source Comments The information contained in this document represents components of the legal health record. It is not the complete legal health record.[facility]
[2024-12-14 13:18] LABS: MANUAL DIFF FLAG NO
[2024-12-14 13:27] LABS: Hematocrit 41.2 % (42.0-52.0); Hemoglobin 13.8 g/dl (14.0-18.0); Imm Gran Abs Auto 0.01 X10*3/uL (0.00-0.03); Imm Gran Pct Auto 0.3 % (0.0-0.4); Lymphocytes Absolute Auto 1.3 X10*3/uL (1.2-4.9); Mean Corpuscular HGB Conc 33.5 g/dl (31.0-36.0); Mean Corpuscular Hemoglobin 30.7 pg (27.0-33.0); Mean Corpuscular Volume 91.8 fL (80.0-98.0); NRBC Abs Auto 0.000 X10*3/uL (0.0-0.012); NRBC Pct Auto 0.0 /100WBC (0.0-0.2); Platelet Count 149 X10*3/uL (160-400); Red Blood Count 4.49 X10*6/uL (4.60-5.80); White Blood Count 3.4 X10*3/uL (4.8-10.8)
[2024-12-14 13:46] LABS: Hemoglobin A1C 131.7668 umol/L; Total Hemoglobin (HGBA1C) 3571.6171 umol/L
[2024-12-14 13:59] LABS: Alanine Aminotransferase 23 U/L (0-40); Albumin Level 4.4 g/dL (3.5-5.0); Alkaline Phosphatase 53 U/L (39-117); Anion Gap 10 (12-20); Aspartate Amino Transferase 26 U/L (5-37); Blood Urea Nitrogen 15 mg/dL (9-16); Calcium 9.0 mg/dL (8.4-10.2); Carbon Dioxide 30 mmol/L (22-29); Chloride 107 mmol/L (96-108); Cholesterol 134 mg/dL (<200); Estimated Glomerular Filt Rate > 60; HDL Cholesterol 31 mg/dL (>40); Potassium 4.0 mmol/L (3.3-5.1); Sodium 143 mmol/L (135-145); Total Protein 6.6 g/dL (6.5-8.0); Triglycerides 161 mg/dL (<150)
== END 2024-12-14 07:31 | disposition home or self-care (01) ==
LOC: HO.MANLDS 07:30
PROVIDERS: Visit Provider Physician Assistant
DX: E11.9 Type 2 diabetes mellitus without complications (principal)
CPT/HCPCS: 36415; 80053; 80061; 83036; 85025

== ENCOUNTER 2025-01-04 11:47 | Outpatient (REF) | payer MEDICARE, SELFPAY | END 2025-01-04 11:48 | disposition home or self-care (01) | LOC: HO.BBR 11:47 | PROVIDERS: PCP Internal Medicine; Visit Provider Physician Assistant | DX: Z13.89 Encounter for screening for other disorder (principal) ==

== ENCOUNTER 2025-01-17 08:44 | Outpatient (AMB) | payer MEDICARE, MEDICAID, SELFPAY ==
--- NOTE | 2025-01-17 08:59 | MHC.OFFVIS ---
Intake Visit Reasons: 1 yr f/u Allergies No Known Allergies Allergy (Unverified 01/17/25 09:00) Medication List - Last Reconciled 01/17/25 by Bhumi Seaman CNP alprazolam 0.5 mg PO TID atorvastatin 40 mg PO DAILY fenofibrate nanocrystallized 48 mg PO DAILY glipizide ER 5 mg PO DAILY paroxetine HCl 30 mg PO DAILY primidone 50 mg PO DAILY propranolol ER 160 mg PO DAILY HPI Comments Details: He was doing okay. Tremor was controlled with current medications. No medication side effects. No functional impairment. No difficulty eating, drinking, or swallowing. Handwriting was a bit better. Sleep was okay. Retired. He had noted tremors in his hands beginning around 2012, which previously interfered with his ability to write, use a mouse and keyboard and sometimes in eating, and had slowly gotten worse. There is no family history of tremors. He has chronic low back pain from an injury in 1983, but does not take anything for it. COUNTS INCLUDE 234 BEDS AT [facility] Medical History (Updated 01/17/25 @ 09:09 by Bhumi Seaman CNP) Diabetes Chronic low back pain Hyperlipidemia Anxiety Panic disorder Review of Systems Const Denies chills, Denies daytime sleepiness, Denies difficulty sleeping, Denies fatigue, Denies fever(s), Denies frequent falls, Denies headache(s), Denies increased appetite, Denies poor appetite, Reports snoring, Denies weakness, Denies weight gain and Denies weight loss Eyes Denies loss of vision ENT Denies vertigo, Denies dizziness, Denies headache(s) and Denies neck pain Card Denies chest pain at rest, Denies chest pain with activity, Denies syncope, Denies leg edema, Denies palpitations, Denies dyspnea and Denies dyspnea on exertion Resp Denies cough, Denies dyspnea, Denies dyspnea on exertion and Reports snoring GI Denies abdominal pain, Denies constipation, Denies heartburn, Denies diarrhea and Denies nausea Denies urinary frequency, Denies urinary incontinence and Denies urinary urgency Musc Denies abnormal gait, Reports back pain, Denies myalgias, Denies arthralgias, Denies neck pain, Denies numbness and Denies tingling Neuro Denies abnormal gait, Denies vertigo, Denies dizziness, Denies syncope, Denies frequent falls, Denies headache(s), Denies lack of coordination, Denies loss of vision, Reports memory loss, Denies numbness, Denies Other visual disturbances, Denies restless legs, Denies seizure-like activity, Denies tingling, Denies paresthesias, Reports tremor(s) and Denies weakness Psych Reports anxiety, Denies depression, Denies auditory hallucinations, Reports memory loss and Denies visual hallucinations Endo Denies fatigue and Denies palpitations Physical Exam Const Other: General Appearance:? normal, in no acute distress. Heart:? S1, S2 normal, no murmurs. Lungs:? clear anteriorly and posteriorly. Musculoskeletal:? normal. Extremities:? no edema. Psych:? alert, oriented, cognitive function intact, cooperative with exam. Neuro Other: Abnormal Neurological Findings:?Minimal tremors on sustained posture of both upper extremities, L > R, increased on FTN. Slight head tremor. Mental Status: alert and oriented X 3. Normal attention, orientation, memory, and affect. Cranial Nerves: Pupils are equal, round, and reactive to light. External ocular muscles are intact. Visual correa are full, no ptosis. Face is symmetrical, no facial weakness or droop. Facial sensations are normal. Tongue protrudes in midline. Palate elevates symmetrically. Shoulder shrugging is normal Motor Examination: Normal muscle tone, bulk and strength. No atrophy or fasciculations. No drift of the extended upper extremities. DTR 2+. Plantars are flexor. Sensory Exam: Normal light touch, temperature, pinprick, vibration, and joint-position sensations. Rhomberg sign is absent. Coordination: No ataxia. No titubation. Gait Exam: Within normal limits. Cerebellar Signs: [id number] as above. Extrapyramidal System: Tremor as above. No rigidity with normal facial expressions. No bradykinesia. No bradyphrenia. Normal arm swing and posture. No propulsion or retropulsion. Speech: Normal. Assessment & Plan Assessment & Plan (1) Benign essential tremor: Code(s): G25.0 - Essential tremor Category: Medical Plan: Continue primidone 50mg 1 tablet daily. Continue propranolol ER 160mg 1 capsule daily. Plan Meds tried: metoprolol Coding Level of Care Code Est Pt Level 4 (52766) Diagnoses Benign essential tremor G25.0
--- OUTSIDE RECORDS SUMMARY | 2025-01-17 09:07 | XMS_ITS | Clinical Summary ---
Author Organization [facility] Address [address] [place] [address] Phone Care Team Providers Care Gaming Host Name Role Phone Nereyda Hoffman DO Primary Care Provider [phone] Allergies No known active allergies Medications ALPRAZolam [...] 65 Admit Type: Outpatient Gender: Male Room: [place] [address] Referring MD: NEREYDA HOFFMAN DO Exam Type: [...] monitored continuously. The Olympus adult variable colonoscope [id number] #1 was introduced through the anus and advanced to the cecum, identified by appendiceal orifice andileocecal valve. The colonoscopy was performed without difficulty. The patient tolerated the procedurewell. The quality of the bowel preparation was excellent. The quality of the bowel preparation was evaluated using the BBPS ([place] Bowel Preparation Scale)with scores of: Right Colon [...] 12:41 PM Procedure Code(s): --- Professional --- 96158, Colonoscopy, flexible; with removal of tumor(s), polyp(s), or other lesion(s) by snare technique --- Technical --- 78334, Colonoscopy, flexible; with removal of tumor(s), polyp(s), or other lesion(s) by snare technique Diagnosis Code(s): --- Professional --- Z86.010, Personal history of colonic polyps K64.8, Other hemorrhoids K63.5, Polyp of colon --- Technical --- Z86.010, Personal history of colonic polyps K64.8, Other hemorrhoids K63.5, Polyp of colon CPT copyright 2020 [employer]. All rights reserved. The codes documented in this report are preliminary and upon coat tailor reviewmay be revised to meet current compliance requirements. Procedure Date: 10/16/2021 12:41:[address] [place] [address] [place] Nereyda Hoffman DO GI PROCEDURE ORDERABLES Final Re sult * Hepatitis C antibody, qualitative (07/10/2021 3:25 PM EDT) HCV NON-REACTIV E NON-REACTI VE [facility] Blood 07/10/2021 3:25 PM EDT 07/10/2021 3:26 PM EDT us Tammy Emerson PA-C LAB BLOOD ORDERABLES Final Resu lt [address] [address] from Last 3 Months or Most Recently [...] Payer ID:[id number] (NAIC) Group ID:[id number] Type:Medicare Address: [address] [id number] [address] PARTIAL MEDICARE PART A & B [place] MED[employer] PREFERRED HMO REPLACEMENT [employer] NET PARTIAL MEDICARE PART A & B [place] [employer] PREFERRED HMO REPLACEMENT [employer] NET PARTIAL MEDICARE PART A & B [place] [employer] PREF[employer] [employer] REPLACEMENT Member Subscriber Plan / Payer (Ef fective 2019-Present) Name:Caleb Ruffin Relation to Subscriber:Self Name:Leonid Ruffinic Payer ID:[id number] (NAIC) Group ID:[id number] Type:Medicare Address: [address] NET PARTIAL MEDICARE PART A & B [facility] MEDICARE PREFERRED HMO REPLACEMENT [facility] PARTIAL MEDICARE PART A & B [place] [employer] PREFERRED HMO REPLACEMENT HE[employer] SAFETY NET PARTIAL MEDICARE PART A & B Care Teams Gaming Host Relationship Specialty Start Date End Date Nereyda Hoffman DO [email or web address] PCP - General Internal Medicine 10/21/17 Additional Source Comments The information contained in this document represents components of the legal health record. It is not the complete legal health record.[facility]
--- OUTSIDE RECORDS SUMMARY | 2025-01-17 09:07 | XMS_ITS | Encounter Summary ---
Author Organization [facility] Address [address] [place] [address] Phone Care Team Providers Care Microfilming Document Preparer Name Role Phone Ishan Baker DO Primary Care Provider [phone] Encounter Details Date Type Department Care Team (Late st Contact Info) Description 10/16/2021 Procedure Pass [facility] Endoscopy Admitting Dept Virtual Department [address] [place] [address] Social History Tobacco Use Types Packs/Day Years [...] on filedocumented in this encounter Care Teams Microfilming Document Preparer Relationship Specialty Start Date End Date Ishan Baker DO PCP - General Internal Medicine 10/21/17 documented as of this encounter Additional Source Comments The information contained in this document represents components of the legal health record. It is not the complete legal health record.[facility]
--- OUTSIDE RECORDS SUMMARY | 2025-01-17 09:07 | XMS_ITS | Encounter Summary ---
Author Organization [facility] Address [address] [place] [address] Phone Care Team Providers Care Wafer Production Lead Worker Name Role Phone Ishan Baker DO Primary Care Provider [phone] Encounter Details Date Type Department Care Team (Latest Contact Info) Description 08/12/2022 Transcribe Orders Virtual Department [address] [place] [address] Tammy Emerson PA-C [address] [place] [address] [email or web address] Hemochromatosis, unspecified hemochromatosis type (Primary [...] type documented in this encounter Care Teams Wafer Production Lead Worker Relationship Specialty Start Date End Date Ishan Baker DO [email or web address] PCP - General Internal Medicine 10/21/17 documented as of this encounter Additional Source Comments The information contained in this document represents components of the legal health record. It is not the complete legal health record.[facility]
--- OUTSIDE RECORDS SUMMARY | 2025-01-17 09:07 | XMS_ITS | Encounter Summary ---
Author Organization [facility] Address [address] [place] [address] Phone Care Team Providers Care Regional Guide Name Role Phone Ishan Baker DO Primary Care Provider [phone] Encounter Details Date Type Department Care Team (Latest Contact Info) Description 07/10/2021 Transcribe Orders Virtual Department [address] [place] [address] Tammy Emerson PA-C [address] [place] [address] Elevated LFTs (Primary Dx) Social History Tobacco [...] chemistry documented in this encounter Care Teams Regional Guide Relationship Specialty Start Date End Date Ishan Baker DO [email or web address] PCP - General Internal Medicine 10/21/17 documented as of this encounter Additional Source Comments The information contained in this document represents components of the legal health record. It is not the complete legal health record.[facility]
--- OUTSIDE RECORDS SUMMARY | 2025-01-17 09:07 | XMS_ITS | Patient Health Record ---
[facility] Organization [facility] Address [address] [place] [address] Care Team Providers Care Chemical Equipment Repairer Name Role Phone Ishan Baker Primary Care Provider Salas Lemon Jr Unavailable Reason For Referral No Information Plan Of Treatment No Information Insurance Providers Payer Name Payer Address Payer Phone Subscriber Number Group Number Insured Name Patient Relationship to Insured Coverage Start Date Coverage End Date [facility] [address] [place] [address] [id number] ELIF PAZ Self - patient is the insured
--- OUTSIDE RECORDS SUMMARY | 2025-01-17 09:07 | XMS_ITS | Encounter Summary ---
Author Organization [facility] Address [address] [place] [address] Phone Care Team Providers Care Manufacturing Technology Analyst Name Role Phone Ishan Baker DO Primary Care Provider [phone] Encounter Details Date Type Department Care Team (Late st Contact Info) Description 10/22/2017 Procedure Pass [facility] Endoscopy Admitting Dept Virtual Department [address] [place] [address] Social History Tobacco Use Types Packs/Day Years [...] on filedocumented in this encounter Care Teams Manufacturing Technology Analyst Relationship Specialty Start Date End Date Ishan Baker DO PCP - General Internal Medicine 10/21/17 documented as of this encounter Additional Source Comments The information contained in this document represents components of the legal health record. It is not the complete legal health record.[facility]
== END 2025-01-17 09:13 | disposition home or self-care (01) ==
LOC: HO.HSM 08:46
PROVIDERS: PCP Internal Medicine; Referring Provider Internal Medicine; Visit Provider Registered Nurse
DX: G25.0 Essential tremor (principal)
CPT/HCPCS: 99214

== ENCOUNTER → 2025-01-17 08:44 | Outpatient (BNVA) | payer MEDICARE, MEDICAID, SELFPAY | PROVIDERS: PCP Internal Medicine; Referring Provider Internal Medicine; Visit Provider Registered Nurse | DX: G25.0 Essential tremor (principal); M54.50 Low back pain, unspecified; G89.29 Other chronic pain | CPT/HCPCS: 99212 ==